=== PATIENT | female | born 2000 | race Caucasian/White ===

== ENCOUNTER → 2018-05-30 11:05 | Outpatient (CLI) | payer MEDICAID, SELFPAY ==
[2018-05-30 12:52] LABS: HCG,Quantitative 341 mIU/mL
== END ==
PROVIDERS: Visit Provider Nurse Practitioner Family
DX: Z32.00 Encounter for pregnancy test, result unknown (principal)
CPT/HCPCS: 36415; 84702

== ENCOUNTER → 2018-06-10 09:06 | Outpatient (CLI) | payer MEDICAID, SELFPAY | PROVIDERS: Visit Provider Obstetrics & Gynecology | DX: O20.0 Threatened abortion (principal) | CPT/HCPCS: 36415; 86850 ==

== ENCOUNTER 2018-07-12 10:15 | Outpatient (CLI) | payer MEDICAID, SELFPAY ==
[2018-07-12 12:15] VITALS: BP 143/66; PULSE 68; RESP 18; TEMP 36.4
== END 2018-07-12 12:25 | disposition home or self-care (01) ==
LOC: LAB 10:16 → INF 12:12
PROVIDERS: Visit Provider Obstetrics & Gynecology
DX: O03.9 Complete or unspecified spontaneous abortion without complication (principal)
CPT/HCPCS: 36415; 96372; J2790

== ENCOUNTER → 2018-12-22 12:14 | Outpatient (CLI) | payer MEDICAID, SELFPAY ==
[2018-12-22 13:34] LABS: HCG,Quantitative 0 mIU/mL
== END ==
PROVIDERS: Visit Provider Nurse Practitioner Family
DX: N91.2 Amenorrhea, unspecified (principal)
CPT/HCPCS: 36415; 84702

== ENCOUNTER 2019-08-17 21:22 | Emergency (ER) | payer OTHER, SELFPAY ==
[2019-08-17 21:31] VITALS: BP 148/75; PULSE 73; RESP 18; TEMP 36.9; O2SAT 100; BMI 40.7
--- NOTE | 2019-08-17 21:36 | XR_ITS ---
PROCEDURE: XR LUMBAR SPINE MIN 4V CLINICAL INDICATION: injury at work, left side lumbar pain COMPARISON: No exams were available for comparison FINDINGS: Normal alignment. No fracture or dislocation. Degenerative disc disease is present at L5-S1. There is a 3 mm calcific density overlying the left kidney centrally and a 2 mm calcific density overlying the mid pole of the right kidney consistent with bilateral nephrolithiasis. IMPRESSION: Degenerative disc disease L5-S1 Bilateral nephrolithiasis Dictated by: Bryson Hlil MD 08/18/2019 07:12 Electronically signed by Bryson Hill MD in [place] 08/18/2019 07:12
--- NOTE | 2019-08-17 21:44 | HMH.EDBACK ---
ED Disposition Clinical Impression: Strain of lumbar region Qualifiers: Encounter type: initial encounter Qualified Code(s): S39.012A - Strain of muscle, fascia and tendon of lower back, initial encounter Disposition: Home, Self-Care Condition on Discharge: Good Instructions: DI for Low Back Pain Additional Instructions: use meds and see pcp - workman comp forms completed Prescriptions: Cyclobenzaprine HCl [Flexeril 10mg tablet] 10 mg PO BID PRN 30 Days #20 tab PRN Reason: Muscle Spasm Transmission Status: Pending to [facility] Meloxicam [Mobic 15 mg tab] 15 mg PO DAILY #10 tab Transmission Status: Pending to [facility] Referrals: Theresa Joel APRN [Primary Care Provider] - - Critical Care Critical Care Time: No Attestation: On , the high probability of a clinically significant, sudden or life threatening deterioration of the following system(s) required my full and direct attention, intervention and personal management. The time I documented below is in addition to time spent performing reported procedures but includes the following listed in this critical care notation. Medical Decision Making - Medical Records Medical records reviewed: Yes: I reviewed the patient's medical records. - [place] Inquiry Pt receiving controlled substance: No Vital Signs: 08/17/19 21:31 Temperature 98.5 F Temperature Source Oral Pulse Rate [Right Brachial] 73 Respiratory Rate 18 Blood Pressure [Right Femoral Artery] 148/75 H Blood Pressure Mean [Right Femoral Artery] 99 Blood Pressure Source [Right Femoral Artery] Automatic Cuff Blood Pressure Position [Right Femoral Artery] Sitting 02 Sat by Pulse Oximetry 100 Oxygen Delivery Method Room Air - Lab Data Lab Results 08/17/19 21:58: Urine HCG, Qual Negative Orders (Tests/Meds): ORDERS Category Date Time Status XR lumbar spine min 4V Stat Exams 08/17/19 21:36 Taken - Radiology Data #1 Image(s): L-Spine Image Reviewed: Yes I reviewed the patient's radiology image Preliminary Findings: No Fracture Seen Back Pain HPI - General Chief Complaint: Back Pain/Injury Stated Complaint: WC [id number] injured back Time Seen by Provider: 08/17/19 21:45 Mode of Arrival: Ambulatory Source of Information: Patient, Medical Record Limitations: No Limitations Description of Symptoms (Recalled from ER Triage Doc. 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 was given a tylenol xstr at the facility, but pain is continuing. no additional complaints. 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 at [facility] and dev lt sided back pain - no sudden pain at time but has dev since - no radiation and no cauda equina sx- worse with movement - workman comp injury MD Complaint: back injury Onset (ago): hour(s) Duration: constant Similar Symptoms Previously: No Location: lumbar spine Severity: moderate Quality: dull Radiation: none Exacerbating factors: movement Context: while lifting Associated symptoms: denies other symptoms Treatments prior to arrival: acetaminophen - Related Data Home Medications Medication Instructions Recorded Confirmed Loratadine [Claritin 10mg 10 mg PO DAILY 12/22/17 05/18/19 Tablet] Previous Rx's Medication Instructions Recorded norgestimate 0.25 mg-ethinyl 1 tab PO DAILY 30 Days #30 tab 05/18/19 estradiol 35 mcg tablet Cyclobenzaprine HCl [Flexeril 10mg 10 mg PO BID PRN 30 Days #20 tab 08/17/19 tablet] Meloxicam [Mobic 15 mg tab] 15 mg PO DAILY #10 tab 08/17/19 Allergies Allergy/AdvReac Type Severity Reaction Status Date / Time No Known Allergies Allergy Verified 08/15/19 14:15 [facility] History - Hepatitis A Screen Drug use history?: No High risk sexual behaviors?: No History of sexually transmitted infection?: No Currently employed?: No Childcare worker?: No Do you have indoor plumbing?: Yes Do you have electricity?:
[2019-08-17 22:11] LABS: Urine Pregnancy, HCG Qual. Negative (Negative)
[2019-08-17 22:40] VITALS: BP 142/75; PULSE 65; RESP 17; TEMP 36.8; O2SAT 98
== END 2019-08-17 22:43 | disposition home or self-care (01) ==
PROVIDERS: Emergency Provider Emergency Medicine; PCP Nurse Practitioner Family
DX: S39.012A Strain of muscle, fascia and tendon of lower back, initial encounter (principal); X50.0XXA Overexertion from strenuous movement or load, initial encounter; Y92.69 Other specified industrial and construction area as the place of occurrence of the external cause; Y99.0 Civilian activity done for income or pay
CPT/HCPCS: 72110; 81025; 99282

== ENCOUNTER → 2019-11-04 09:40 | Outpatient (CLI) | payer OTHER, SELFPAY ==
[2019-11-04 10:39] LABS: HCG,Quantitative 6489 mIU/ml (0-5.42)
== END ==
PROVIDERS: Visit Provider Obstetrics & Gynecology
DX: Z32.00 Encounter for pregnancy test, result unknown (principal)
CPT/HCPCS: 36415; 84702

== ENCOUNTER → 2019-11-16 14:35 | Outpatient (CLI) | payer OTHER, SELFPAY ==
--- NOTE | 2019-11-16 14:40 | US_ITS ---
PROCEDURE: US OB TRANSVAGINAL CLINICAL INDICATION: US OB Dates COMPARISON: US OBTV US OB transvaginal from 05/31/2018 FINDINGS: An intrauterine gestational sac is present with a pole with a crown-rump length of 1.26cm correlating to gestational age of 7weeks 4days. heart tones are present with an FHR of 149bpm. Yolk sac is noted. Probable small corpus luteum cyst on the right at 13 mm IMPRESSION: Live IUP at 7 weeks 4 days Estimated due date by Ultrasound is 06/30/2020 Dictated by: Bryson Hill MD 11/16/2019 16:15 Bryson Hill MD in [place] 11/16/2019 16:15
== END ==
PROVIDERS: PCP Nurse Practitioner Family; Visit Provider Obstetrics & Gynecology
DX: O26.841 Uterine size-date discrepancy, first trimester (principal)
CPT/HCPCS: 76817

== ENCOUNTER → 2019-11-28 15:02 | Outpatient (CLI) | payer OTHER, SELFPAY ==
[2019-11-28 15:36] LABS: Basophils % 0.5 % (0.1-2.0); Eosinophils # 0.1 K/mm3 (0.0-0.4); Eosinophils % 1.1 % (0.1-12.0); Hematocrit 39.4 % (37.0-47.0); Hemoglobin 12.4 g/dL (12.2-16.2); Lymphocytes # 1.5 K/mm3 (0.7-4.5); Lymphocytes % 16.8 % (10-50); Mean Corpuscular HGB Conc 31.4 g/dL (31.8-35.4); Mean Corpuscular Hemoglobin 27.2 pg (27.0-31.2); Mean Corpuscular Volume 86.8 fl (81-99); Monocytes # 0.5 K/mm3 (0.1-1.0); Monocytes % 5.3 % (1.7-9.3); Neutrophils # 6.8 K/mm3 (1.8-7.8); Neutrophils % 76.4 % (37.0-80.0); Platelet Count 310 K/mm3 (142-424); Red Blood Count 4.54 M/mm3 (4.20-5.40); Red Cell Distribution Width 13.3 % (11.5-17.5); White Blood Count 8.9 K/mm3 (4.8-10.8)
[2019-11-30 11:12] LABS: Rapid Plasma Reagin Ab Titer Non Reactive (NonRea<1:1)
[2019-12-01 04:28] LABS: Neisseria gonorrhoeae, NAA Negative (Negative)
[2019-12-01 04:28] LABS: HIV Screen 4th Generation wRfx Non Reactive (Non Reactive); Hepatitis B Surface Antigen Negative (Negative); Hepatitis C Antibody <0.1 s/co ratio (0.0-0.9)
== END ==
PROVIDERS: Visit Provider Obstetrics & Gynecology
DX: Z34.90 Encounter for supervision of normal pregnancy, unspecified, unspecified trimester (principal)
CPT/HCPCS: 36415; 85025; 86592; 86703; 86762; 86850; 87340; 87380; 87491; 87591; G0432

== ENCOUNTER → 2020-02-12 12:31 | Outpatient (CLI) | payer OTHER, SELFPAY ==
--- NOTE | 2020-02-12 12:31 | US_ITS ---
PROCEDURE: US OB >= 14 WEEKS FETUS CLINICAL INDICATION: US OB Complete COMPARISON: US US OB TRANSVAGINAL from 11/16/2019 FINDINGS: There is a single live fetus in breech presentation. Cervix is closed measuring 4 cm. The placenta is anterior and grade 1. Complete survey performed and was unremarkable on the submitted images as in PACS. No discrete anomalies identified on survey imaging by technologist. Active fetus. Three-vessel cord with satisfactory umbilical cord insertion. 4- chamber heart noted. Survey of brain & ventricles Unremarkable. Face and neck survey unremarkable. Diaphragm and chest views unremarkable. Abdomen: Both kidneys noted and unremarkable. Stomach noted and satisfactory. Spine: Survey of the spine satisfactory with no anomalies identified nor imaged. Both arms and legs noted. Amniotic Fluid: Adequate. Maternal adnexa: No significant findings. Measurements: Average ultrasound age 20weeks 1day. Gestational Age 20weeks 1day Estimated due date by ultrasound age 0506/30/2020. Estimated weight 338g BPD = 20weeks 2days OFD = 20 weeks 2 days HC = 19weeks 4days AC = 20weeks 2days FL = 20weeks 3days Growth Percentile= 48 percent% Heart Rate = 147bpm Cerebellum = 20weeks 1day Humerus = 20weeks 6days HC/AC is 1.12 CI is 0.8 FL/BPD is 0.71 FL/AC is 0.22 IMPRESSION: Live IUP in breech presentation with and average ultrasound age of 20 weeks 1 day. No obvious anomalies. Please see above for detail Dictated by: Bryson Hill MD 02/12/2020 17:39 Bryson Hill MD in [place] 02/12/2020 17:39
== END ==
PROVIDERS: PCP Nurse Practitioner Family; Visit Provider Obstetrics & Gynecology
DX: Z36.0 Encounter for antenatal screening for chromosomal anomalies (principal)
CPT/HCPCS: 76805

== ENCOUNTER 2020-04-25 14:07 | Outpatient (CLI) | payer OTHER, SELFPAY ==
[2020-04-25 15:01] LABS: Glucose,Fasting 84 mg/dl (74-100)
[2020-04-25 16:25] VITALS: BP 144/88; PULSE 90; RESP 18; TEMP 36.6; O2SAT 100
[2020-04-25 17:02] LABS: Glucose 1 Hour 119 mg/dL (74-100)
== END 2020-04-25 16:25 | disposition home or self-care (01) ==
PROVIDERS: PCP Nurse Practitioner Family; Visit Provider Obstetrics & Gynecology
DX: Z34.90 Encounter for supervision of normal pregnancy, unspecified, unspecified trimester (principal)
CPT/HCPCS: 36415; 82951; 96372; J2790

== ENCOUNTER 2020-05-31 15:18 | Outpatient (CLI) | payer OTHER, SELFPAY ==
[2020-05-31 15:47] VITALS: BMI 43.4
[2020-05-31 16:01] VITALS: BMI 49.1
[2020-05-31 16:09] VITALS: BP 131/90; PULSE 92; RESP 18; TEMP 36.7; O2SAT 96
[2020-05-31 16:26] LABS: Microscopic, Urine URINE MICROSCOPIC (MICROSCOPIC)
[2020-05-31 16:30] LABS: Appearance,Urine CLEAR (Clear); Bilirubin,Urine Negative (Negative); Blood, Urine 1+ (Negative); Color,Urine YELLOW (Yellow); Glucose,Urine (UA) Negative (Negative); Ketones,Urine Negative (Negative); Leukocyte Esterase,Urine TRACE (Negative); Nitrate,Urine POSITIVE (Negative); PH,Urine 6.5 (5.0-8.5); Protein,Urine Negative (Negative); Specific Gravity, Urine 1.025 (1.005-1.030); Urobilinogen,Urine 0.2 EU/dl (0.2)
[2020-05-31 16:43] LABS: Bacteria,Urine 1+ /lpf; RBC,Urine Occasional #/hpf (0-3); Squamous Epithelial Cell,Urine 20-50 #/hpf (0-5)
[2020-05-31 16:45] LABS: Barbiturates Screen,Urine Negative ng/ml (<200)
[2020-05-31 16:46] LABS: Benzodiazepines Screen,Urine Negative ng/ml (<200)
[2020-05-31 16:47] LABS: Amphetamine/Metha Screen,Urine Negative ng/ml (<1000); Cannabinoid Screen,Urine Negative ng/ml (<50)
[2020-05-31 16:48] LABS: Cocaine Screen,Urine Negative ng/ml (<300); Methadone Screen,Urine Negative ng/ml (<300)
[2020-05-31 16:49] LABS: Opiate Screen,Urine Negative ng/ml (<300)
[2020-05-31 16:50] LABS: Phencyclidine Screen,Urine Negative ng/ml (<25)
== END 2020-05-31 17:05 | disposition home or self-care (01) ==
LOC: OBOUT 15:22 → OB 15:22
PROVIDERS: PCP Obstetrics & Gynecology; Visit Provider Nurse Practitioner Obstetrics & Gynecology
DX: O36.8130 Decreased fetal movements, third trimester, not applicable or unspecified (principal); Z3A.35 35 weeks gestation of pregnancy
CPT/HCPCS: 59025; 80305; 81001; G0463

== ENCOUNTER → 2020-06-11 17:45 | Outpatient (CLI) | payer OTHER, SELFPAY | PROVIDERS: Visit Provider Obstetrics & Gynecology | DX: Z34.90 Encounter for supervision of normal pregnancy, unspecified, unspecified trimester (principal) | CPT/HCPCS: 36415; 86403 ==

== ENCOUNTER 2020-07-01 15:48 | Inpatient (IN) | payer OTHER, SELFPAY ==
[2020-07-01 16:00] VITALS: BMI 45.8
[2020-07-01 16:55] LABS: Basophils # 0.1 K/mm3 (0-0.2); Basophils % 0.4 % (0.1-2.0); Eosinophils # 0.1 K/mm3 (0.0-0.4); Eosinophils % 0.6 % (0.1-12.0); Hematocrit 37.7 % (37.0-47.0); Hemoglobin 12.3 g/dL (12.2-16.2); Lymphocytes # 2.2 K/mm3 (0.7-4.5); Lymphocytes % 17.9 % (10-50); Mean Corpuscular HGB Conc 32.7 g/dL (31.8-35.4); Mean Corpuscular Hemoglobin 27.4 pg (27.0-31.2); Mean Corpuscular Volume 83.8 fl (81-99); Monocytes # 0.8 K/mm3 (0.1-1.0); Monocytes % 6.3 % (1.7-9.3); Neutrophils # 9.3 K/mm3 (1.8-7.8); Neutrophils % 74.8 % (37.0-80.0); Platelet Count 319 K/mm3 (142-424); Red Blood Count 4.49 M/mm3 (4.20-5.40); Red Cell Distribution Width 14.3 % (11.5-17.5); White Blood Count 12.4 K/mm3 (4.8-10.8)
[2020-07-01 17:01] VITALS: BP 140/87; PULSE 87; RESP 18; TEMP 37; O2SAT 98; BMI 51.9
[2020-07-01 17:08] LABS: Adenovirus,PCR Not Detected (NotDetected); Bordetella Pertussis Not Detected (NotDetected); Chlamydophila Pneumoniae, PCR Not Detected (NotDetected); Coronavirus 19, PCR Not Detected (NotDetected); Coronavirus 229E Not Detected (NotDetected); Coronavirus NL63 Not Detected (NotDetected); Coronavirus OC43 Not Detected (NotDetected); Coronovirus HKU1,PCR Not Detected (NotDetected); Human Metapneumovirus Not Detected (NotDetected); Influenza A, PCR Not Detected (NotDetected); Influenza AH1, 2009 Not Detected (NotDetected); Influenza AH1, PCR Not Detected (NotDetected); Influenza AH3,PCR Not Detected (NotDetected); Influenza B, PCR Not Detected (NotDetected); Mycoplasma Pneumoniae, PCR Not Detected (NotDetected); Parainfluenza 1, PCR Not Detected (NotDetected); Parainfluenza 2, PCR Not Detected (NotDetected); Parainfluenza 3, PCR Not Detected (NotDetected); Parainfluenza 4, PCR Not Detected (NotDetected); Respiratory Syncytial Virus Not Detected (NotDetected); Rhinovirus/Enterovirus Not Detected (NotDetected)
[2020-07-01 18:14] LABS: Microscopic, Urine URINE MICROSCOPIC (MICROSCOPIC)
[2020-07-01 18:16] LABS: Appearance,Urine CLEAR (Clear); Bilirubin,Urine Negative (Negative); Blood, Urine Negative (Negative); Color,Urine YELLOW (Yellow); Glucose,Urine (UA) Negative (Negative); Ketones,Urine Negative (Negative); Leukocyte Esterase,Urine Negative (Negative); Nitrate,Urine Negative (Negative); PH,Urine 6.5 (5.0-8.5); Protein,Urine Negative (Negative); Specific Gravity, Urine 1.015 (1.005-1.030); Urobilinogen,Urine 0.2 EU/dl (0.2)
[2020-07-01 18:27] LABS: Bacteria,Urine 2+ /lpf; RBC,Urine Occasional #/hpf (0-3)
[2020-07-01 20:05] VITALS: BP 130/82; PULSE 81; RESP 18; TEMP 36.6; O2SAT 97
[2020-07-02] VITALS (25 sets, daily range): BP systolic 102–160; BP diastolic 48–89; PULSE 66–103; RESP 12–20; TEMP 36.3–37.3; O2SAT 95–100
--- NOTE | 2020-07-02 07:30 | HMH.HP ---
*Admission Date: 07/01/20 *Chief complaint: post-date induction *History of present illness: 19 yo G1 @ 40+ weeks for post-date induction of labor unfavorable cervix and patient brought in for prostaglandin ripening on 07/01/20 cervidil placed in the vagina but had to be removed 1 hour later due to intolerance with the medication [facility] History I have reviewed the patient's past medical history: Yes Medical History: Denies:: Diabetes Mellitus Type 1, Diabetes Mellitus Type 2, Hypertension *Have you ever received a pneumonia vaccine?: No *Have you received a flu vaccine this season?: No Anesthesia experience/problems:: None Laterality Cases: Bilateral: Tonsillectomy Other Surgeries: Yes: Cholecystectomy. 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 Para: 0 Review of Systems - Review of Systems Review of systems:: pertinent systems reviewed and negative unless documented below - *Genitourinary Reports other (irregular contractions), Denies abnormal vaginal bleeding Meds Home Medications Medication Instructions Recorded Confirmed Type Loratadine [Claritin 10mg 10 mg PO DAILY 12/22/17 07/01/20 History Tablet] omeprazole 20 mg capsule,delayed 20 mg PO DAILY cap 11/28/19 07/01/20 History release ondansetron 4 mg disintegrating 4 mg PO Q4H PRN #30 tab 11/28/19 07/01/20 Rx tablet Vit Calc,Iron,Folic [Kpn] 1 tab PO DAILY 07/01/20 07/01/20 History Allergies Allergy/AdvReac Type Severity Reaction Status Date / Time No Known Allergies Allergy Verified 06/28/20 13:31 Exam Vital signs and Labs for Last 24 Hours: Temp Pulse Resp BP Pulse Ox 97.8 F 103 H 12 102/48 L 99 07/02/20 13:11 07/02/20 13:11 07/02/20 13:11 07/02/20 13:11 07/02/20 04:11 Laboratory Results - last 24 hr 07/01/20 16:15: Urine Color Yellow, Urine Appearance Clear, Urine pH 6.5, Ur Specific [place] 1.015, Urine Protein Negative, Urine Glucose (UA) Negative, Urine Ketones Negative, Urine Blood Negative, Urine Nitrate Negative, Urine Bilirubin Negative, Urine Urobilinogen 0.2, Ur Leukocyte Esterase Negative, Urine RBC Occasional, Urine WBC 10-20, Ur Squamous Epith Cells 5-10, Urine Bacteria 2+ 07/01/20 16:30: Chlamy pneumoniae PCR Not detected, Adenovirus (PCR) Not detected, B. pertussis DNA (PCR) Not detected, Coronavirus OC43 (PCR) Not detected, Coronavirus HKU1 (PCR) Not detected, Coronavirus 229E (PCR) Not detected, SARS-CoV-2 (PCR) Not detected, Coronavirus NL63 (PCR) Not detected, Human Metapneumovir PCR Not detected, Influenza A (H1) PCR Not detected, Influ A (H1N1/09) PCR Not detected, Influenza A (H3) PCR Not detected, Influenza Type A (PCR) Not detected, Influenza Type B (PCR) Not detected, M. pneumoniae (PCR) Not detected, Parainfluenza 1 (PCR) Not detected, Parainfluenza 2 (PCR) Not detected, Parainfluenza 3 (PCR) Not detected, Parainfluenza 4 (PCR) Not detected, RSV (PCR) Not detected, Entero/Rhino (PCR) Not detected 07/01/20 16:34: WBC 12.4 H, RBC 4.49, Hgb 12.3, Hct 37.7, MCV 83.8, MCH 27.4, MCHC 32.7, RDW 14.3, Plt Count 319, MPV 8.0, Neut % (Auto) 74.8, Lymph % (Auto) 17.9, Andrews % (Auto) 6.3, Eos % (Auto) 0.6, Baso % (Auto) 0.4, Neut # (Auto) 9.3 H, Lymph # (Auto) 2.2, Andrews # (Auto) 0.8, Eos # (Auto) 0.1, Baso # (Auto) 0.1 07/01/20 16:34: Blood Type O Negative, Antibody Screen Positive, Crossmatch (AHG) See Detail I & O for Last 24 hours: Intake & Output 06/30/20 07/01/20 07/02/2007/03/21 11:59 11:59 11:59 11:59 Intake Total 1500 / 1500 Balance 1500 / 1500 Weight 284 lb Microbiology Reports for the Last 24 Hours: Microbiology 07/01/20 16:15 Urine,Clean Catch
--- NOTE | 2020-07-02 09:30 | HMH.LABNOT ---
Labor Note - Subjective: Date: 07/02/20 Time: 13:43 regular contraction - Objective: NST:: Reactive Cervical Dilation:: 2 Effacement:: 80% Membranes: artificially ruptured Comment:: AROM with clear fluid IUPC and FSE placed without difficulty - Fetus: monitoring type:: Internal Comment:: recurrent late decelerations x 3 following amniotomy; resolved with repositioning, maternal O2 administration and discontinuation of pitocin - Assessment: Patient Problems: All Active Problems Postmaturity , 40-42 weeks gestation (Acute) 40 weeks gestation of (Acute) Post term over 40 weeks (Acute) Rh negative status during (Acute) Obesity complicating (Acute) (Acute) Strain of lumbar region (Acute) Dysplasia of cervix, low grade (LANE 1) (Acute) ASCUS with positive high risk HPV (Acute) Viral pharyngitis (Acute) 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
--- NOTE | 2020-07-02 09:49 | HMH.ANESCL ---
[facility] Anesthesia Checklist - Patient Identification Patient Identification: Arm Band - Structural Data Admitted From: Inpatient Planned Operative Procedure/s: DEVORA for labor Consent for Planned Operative Procedure(s) Verified: Yes Verified Documents: Surgical Consent - NPO Status Verified Time NPO: 00:00 - Airway Assessment C-Spine Mobility Assessed: Yes TMJ Mobility Assessed: Yes Dentition: Good Dentition - Neurological Assessment Level of Consciousness: Awake, Alert - Anesthesia Plan Anesthesia Risk discussed: Yes Anesthesia Plan: Verified ASA Class: II Anesthesia Type: Epidural [facility] History Medical History: Denies:: Diabetes Mellitus Type 1, Diabetes Mellitus Type 2, Hypertension *Have you ever received a pneumonia vaccine?: No *Have you received a flu vaccine this season?: No Anesthesia experience/problems:: None Laterality Cases: Bilateral: Tonsillectomy Other Surgeries: Yes: Cholecystectomy. 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
--- NOTE | 2020-07-02 13:10 | P.PN_ITS ---
[facility] Anesthesia Record Part I Intake, IV Amount: 1,500 Estimated blood loss (mL): 700 Urine output (mL): 300 Blood Pressure: 102/48 SaO2: 97 Pulse Rate: 103 Respiratory Rate: 12 Temperature: 97.8 F Patient is:: Awake, Stable Stable to PACU at:: 13:05
--- NOTE | 2020-07-02 13:53 | HMH.LABNOT ---
Labor Note - Subjective: Date: 07/02/20 Time: 11:30 Comment:: comfortable with epidural recurrent late decelerations; cervix unchanged 2/80% pitocin discontinued will proceed to OR for primary CS - Assessment: Patient Problems: All Active Problems Postmaturity , 40-42 weeks gestation (Acute) 40 weeks gestation of (Acute) Post term over 40 weeks (Acute) Rh negative status during (Acute) Obesity complicating (Acute) (Acute) Strain of lumbar region (Acute) Dysplasia of cervix, low grade (LANE 1) (Acute) ASCUS with positive high risk HPV (Acute) Viral pharyngitis (Acute) High risk HPV infection (Acute) LGSIL on Pap smear of cervix (Acute)
--- NOTE | 2020-07-02 14:17 | HMH.OPNOTE ---
Date of procedure: 07/02/20 Pre-op Diagnosis:: 1. 40 wks gestational age 2. Non-reassuring heart tracing, remote from delivery Post-op Diagnosis:: same Procedure performed:: Primary Low Transverse C Section Surgeon:: Zuly Gaspar MD Channel Cementer Outsole Machine(s):: Jeovanny Coto SUPERVISOR PAINT ROLLER COVERS:: Hari Alegria Anesthesia: epidural Estimated blood loss (mL): 900 Operative findings:: vigorous liveborn male grossly normal uterus, fallopian tubes and ovaries Operative note:: The patient was taken to the OR and was prepped and draped in normal sterile fashion. Adequate epidural anesthesia was confirmed. A pfannenstiel skin incision was made with the scalpel and carried down to the fascia. The fascia was incised in the midline and sharply dissected off the rectus muscles. The muscles were in the midline and the peritoneum was entered sharply and extended bluntly. The Arpan-O self retaining retractor was placed in the abdomen and a bladder flap was created. The uterus was incised in the lower uterine segment in a transverse fashion and extended bluntly. Amniotomy was performed and clear fluid noted. The was delivered in controlled fashion, without complication or shoulder dystocia. The infant was vigorous at and handed to awaiting pediatricians for evaluation after cord clamped and cut. Cord blood was collected and a cord segment was preserved. The placenta was manually extracted and noted to be intact. The uterus was repaired with 0-vicryl in a running/locked fashion. The peritoneum was closed with 2-0 vicryl in a running fashion. The fascia was closed with #1 vicryl in a running fashion. The subcutaneous fat was closed with 2-0 vicryl in an interrupted fashion. The skin was closed with stratafix suture. The patient tolerated the procedure well. Sponge, lap, needle and instrument counts were correct x 2. She was taken to PACU awake and in stable condition. Condition: stable Disposition: PACU Specimens:: placenta Complications:: none
[2020-07-03 03:58] VITALS: BP 123/69; PULSE 89; RESP 20; TEMP 36.7; O2SAT 100
[2020-07-03 07:16] LABS: Hematocrit 27.4 % (37.0-47.0); Hemoglobin 9.2 g/dL (12.2-16.2)
--- NOTE | 2020-07-03 07:57 | HMH.ANESII ---
[facility] Anesthesia Record Part II Discharge Time: 13:53 Destination: Obstetric PACU nurse assessment reviewed?: Yes Patient Condition:: Good Anesthesia Complications:: None Swallowing reflex intact?: Yes Cyanosis?: No Blood Pressure: 160/83 Pulse Rate: 100 Temperature: 97.5 F Mental Status: Alert & Oriented Pain level:: 0 Nausea and/or vomitting:: None Intake, IV Amount: 0
[2020-07-03 07:59] VITALS: BP 160/83; PULSE 100; TEMP 36.4
--- NOTE | 2020-07-03 11:35 | HMH.ACPN2 ---
Internal Medicine - PN: Subj *Date: 07/03/20 *Time: 11:36 Interval history: POD #1 primary CS No unusual complaints Tolerating regular diet Ambulating and voiding without difficulty Asymptomatic with acute blood loss anemia Exam Vital signs and Labs for Last 24 Hours: Temp Pulse Resp BP Pulse Ox 97.5 F L 100 H 20 160/83 H 100 07/03/20 07:59 07/03/20 07:59 07/03/20 03:58 07/03/20 07:59 07/03/20 03:58 Laboratory Results - last 24 hr 07/01/20 16:34: Blood Type O Negative, Antibody Screen Positive, Crossmatch (AHG) See Detail 07/03/20 06:45: Hgb 9.2 L, Hct 27.4 L 07/03/20 06:45: Screen Cancelled, Baby's Rh Status Cancelled I & O for Last 24 hours: Intake & Output 06/30/20 07/01/20 07/02/20 07/03/20 11:59 11:59 11:59 11:59 Intake Total 1500 / 1500 Output Total 600 / 600 1350 / 1350 Balance -600 / -600 150 / 150 Weight 284 lb Microbiology Reports for the Last 24 Hours: Microbiology 07/01/20 16:15 Urine,Clean Catch Urine Culture - Final Multiple organisms, suggests contamination. Narrative: CONSTITUTIONAL: no acute distress HEENT: mucous membranes moist PULMONARY: breathing unlabored without audible wheezes CV: no tachycardia or visible JVD; normal LE peripheral pulses ABD: soft, ND; appropriately tender but no rebound/guarding : fundus firm at/below umbilicus SKIN: incision well approximated with no drainage, erythema or induration EXT: 1+ edema LEs NEURO: alert/oriented, no altered mental status PSYCH: appropriate mood and demeanor Assessment and Plan (1) 40 weeks gestation of Status: Acute Category: Medical Code(s): Z3A.40 - 40 weeks gestation of (2) Post term over 40 weeks Status: Acute Category: Medical Code(s): O48.0 - Post-term (3) Obesity complicating Status: Acute Category: Medical Code(s): O99.210 - Obesity complicating , unspecified trimester (4) Rh negative status during Status: Acute Category: Medical Code(s): O26.899 - Other specified related conditions, unspecified trimester; Z67.91 - Unspecified blood type, Rh negative - Assessment and plan all Dx Assessment and Plan for all problems:: Routine postop care FeSO4 BID for anemia
--- NOTE | 2020-07-04 10:23 | HMH.DCSUM ---
General - General Admission date:: 07/01/20 Discharge date: 07/04/20 HPI HPI: 19 yo G1 @ 40+ weeks for post-date induction of labor unfavorable cervix and patient brought in for prostaglandin ripening on 07/01/20 cervidil placed in the vagina but had to be removed 1 hour later due to intolerance with the medication Hospital Course Hospital Course: Admitted for IOL at 40+ weeks Delivered by c section due to nonreassuring heart tracing, remote from delivery Postop/ course uneventful Tolerating regular diet, ambulating and voiding without difficulty pain control sufficient Objective Vital signs: Temp Pulse Resp BP Pulse Ox 97.5 F L 100 H 20 160/83 H 100 07/03/20 07:59 07/03/20 07:59 07/03/20 03:58 07/03/20 07:59 07/03/20 03:58 Narrative: CONSTITUTIONAL: no acute distress HEENT: mucous membranes moist PULMONARY: breathing unlabored without audible wheezes CV: no tachycardia or visible JVD; normal LE peripheral pulses ABD: soft, ND; appropriately tender but no rebound/guarding : fundus firm at/below umbilicus SKIN: incision well approximated with no drainage, erythema or induration EXT: 1+ edema LEs NEURO: alert/oriented, no altered mental status PSYCH: appropriate mood and demeanor without anxiety/depression DS: Diagnosis - Discharge Diagnosis (1) 40 weeks gestation of Status: Acute (2) Post term over 40 weeks Status: Acute (3) Obesity complicating Status: Acute (4) Rh negative status during Status: Acute Discharge Plan - Patient Discharge Instructions ACTIVITY: Continue current activity DIET: regular diet Additional Instructions: NO HEAVY LIFTING NOTHING IN THE VAGINA FOR 6 WEEKS NO DRIVING DRINK PLENTY OF FLUIDS Patient Instructions: Depression, Hemorrhage, DI for , DI for Pre-eclampsia, [facility] Post Discharge Instructions, Preventing the Spread of Coronavirus Discharge Instructions - Follow up Plan Disposition: Home, Self-Care Condition at discharge:: Stable Home Medications: Home Medications Medication Instructions Recorded Confirmed Type Loratadine [Claritin 10mg 10 mg PO DAILY 12/22/17 07/01/20 History Tablet] omeprazole 20 mg capsule,delayed 20 mg PO DAILY cap 11/28/19 07/01/20 History release ondansetron 4 mg disintegrating 4 mg PO Q4H PRN #30 tab 11/28/19 07/01/20 Rx tablet Vit Calc,Iron,Folic [Kpn] 1 tab PO DAILY 07/01/20 07/01/20 History Ibuprofen [Motrin 400mg 800 mg PO Q6HP PRN #40 tab 07/04/20 Rx tablet] Oxycodone HCl [OxyIR 5mg tablet] 10 mg PO Q4HP PRN #24 tab 07/04/20 Rx Prescriptions/Medication Reconciliation: New Ibuprofen [Motrin 400mg tablet] 800 mg PO Q6HP PRN #40 tab PRN Reason: Mild To Moderate Pain Acetaminophen [Acetaminophen 325mg tab] 650 mg PO Q4HP PRN tablet PRN Reason: Mild Pain Oxycodone HCl [OxyIR 5mg tablet] 10 mg PO Q4HP PRN #24 tab PRN Reason: Moderate To Severe Pain Continued ondansetron 4 mg disintegrating tablet 4 mg PO Q4H PRN #30 tab PRN Reason: nausea and vomiting omeprazole 20 mg capsule,delayed release 20 mg PO DAILY cap Loratadine [Claritin 10mg Tablet] 10 mg PO DAILY Vit Calc,Iron,Folic [Kpn] 1 tab PO DAILY - Problem Reconciliation Problems Reviewed?: Yes
== END 2020-07-04 13:45 | disposition home or self-care (01) | DRG 788 ==
PROVIDERS: Admitting Provider Obstetrics & Gynecology; PCP Nurse Practitioner Family; Visit Provider Obstetrics & Gynecology
PROC: 10D00Z1 Extraction of Products of Conception, Low, Open Approach (ICD-10-PCS; CPT 59514; principal; 2020-07-02 12:00)
DX: O36.8330 Maternal care for abnormalities of the fetal heart rate or rhythm, third trimester, not applicable or unspecified (principal); Z3A.40 40 weeks gestation of pregnancy; Z37.0 Single live birth
CPT/HCPCS: 59514; 36415; 59025; 81001; 85014; 85018; 85025; 86850; 86870; 87086; 87581; 87633; 87798; 94761; C1758; G0283; J2405

== ENCOUNTER 2020-11-19 17:52 | Emergency (ER) | payer OTHER, SELFPAY ==
[2020-11-19 17:53] VITALS: BP 133/99; PULSE 90; RESP 14; TEMP 36.8; O2SAT 100; BMI 41.9
--- NOTE | 2020-11-19 18:22 | XR_ITS ---
PROCEDURE INFORMATION: Exam: XR Right Ankle Exam date and time: 11/19/2020 6:22 PM Age: 20 years old Clinical indication: Injury or trauma; Fall; Sprain or strain; Right; Injury date: 11/17/20; Injury details: Stepped into a hole and twisted ankle; Additional info: Pain TECHNIQUE: Imaging protocol: XR Right ankle. Views: 3 or more views. COMPARISON: No relevant prior studies available. FINDINGS: Bones/joints: Of subtle cortical irregularity is seen in the distal right fibula. This could represent a nondisplaced fracture. Ankle mortise is well aligned. Soft tissues: Moderate soft tissue swelling about the ankle. IMPRESSION: A nondisplaced fracture at the tip of the fibula is suspected.
[2020-11-19 18:31] VITALS: BP 129/80; PULSE 82; RESP 18; TEMP 36.9; O2SAT 98; BMI 41.9
--- NOTE | 2020-11-19 19:03 | HMH.EDUTC ---
[facility] – [place] Disposition Clinical Impression: Closed fracture of right distal fibula Qualifiers: Encounter type: initial encounter Fracture morphology: unspecified fracture morphology Qualified Code(s): S82.831A - Other fracture of upper and lower end of right fibula, initial encounter for closed fracture Disposition: Home, Self-Care Condition on Discharge: Good Instructions: Ankle Fracture, DI for Ankle Fracture, How to Use a Walking Boot Additional Instructions: Rest the extremity, apply ice for 15 minutes as tolerated three or four times per day, Wear the humble wrap for compression, Elevate the extremity as tolerated while you are resting. Take ibuprofen for pain. I sent in a prescription to your pharmacy. Follow up with Dr. Rey (orthopedics). I put in a referral but you need to call his office and schedule an appointment. Call his office in the morning to get a follow up appointment. Follow up with your regular doctor. GO TO THE ER FOR ANY WORSENING SYMPTOMS Prescriptions: Ibuprofen [Ibuprofen 600mg Tablet] 600 mg PO Q6HP PRN #30 tab PRN Reason: Mild Pain Transmission Status: Received by [employer] Referrals: Theresa Joel APRN [Primary Care Provider] - Ravi Rey MD [Staff Physician] - Forms: Work/School Release Time of Disposition: 19:25 Medical Decision Making - Medical Records Medical records reviewed: No: I reviewed the patient's medical records. - Pepe Inquiry Pt receiving controlled substance: No Vital Signs: 11/19/20 17:53 11/19/20 18:31 Temperature 98.3 F 98.5 F Temperature Source Oral Oral Pulse Rate [Left Radial] 90 82 Respiratory Rate 14 18 Blood Pressure [Left Arm] 133/99 H 129/80 Blood Pressure Mean [Left Arm] 110 96 Blood Pressure Source [Left Arm] Automatic Cuff Blood Pressure Position [Left Arm] Sitting 02 Sat by Pulse Oximetry 100 98 Oxygen Delivery Method Room Air - Radiology Data #1 Image(s): Ankle Image Reviewed: Yes I reviewed the patient's radiology image, Yes I have reviewed radiologist's interpretation Preliminary Findings: Abnormal PROCEDURE INFORMATION: Exam: XR Right Ankle Exam date and time: 11/19/2020 6:22 PM Age: 20 years old Clinical indication: Injury or trauma; Fall; Sprain or strain; Right; Injury date: 11/17/20; Injury details: Stepped into a hole and twisted ankle; Additional info: Pain TECHNIQUE: Imaging protocol: XR Right ankle. Views: 3 or more views. COMPARISON: No relevant prior studies available. FINDINGS: Bones/joints: Of subtle cortical irregularity is seen in the distal right fibula. This could represent a nondisplaced fracture. Ankle mortise is well aligned. Soft tissues: Moderate soft tissue swelling about the ankle. IMPRESSION: A nondisplaced fracture at the tip of the fibula is suspected. [facility] [place] HPI - General Stated complaint: a/o 11/17 fell in hole right ankle injury Time Seen by Provider: 11/19/20 19:03 Mode of Arrival: Ambulatory Source of Information: Patient Limitations: No Limitations Description of Symptoms (Recalled from Triage Doc. by RN): pt tripped in a hole and rolled her R ankle two days ago. pt c/o R ankle pain and swelling. HEENT Symptoms (Recalled from RN notes): No Resp Symptoms (Recalled from RN notes): No Skin Symptoms (Recalled from RN notes): No MS Symptoms (Recalled from RN notes): Yes (R ankle pain and swelling) Functional Status (Recalled from RN notes): na - History of Present Illness Provider Complaint: She states that 2 days ago she stepped in a hole in her yard and twisted her right ankle. Since then he has right ankle pain and swelling. Her pain is worse when she tries to bear weight on it. - Related Data Home Medications Medication Instructions Recorded Confirmed Loratadine [Claritin 10mg 10 mg PO DAILY 12/22/17 07/01/20 Tablet] omeprazole 20 mg capsule,delayed 20
[2020-11-19 19:40] VITALS: BP 129/80; PULSE 82; RESP 18; TEMP 36.9
== END 2020-11-19 19:40 | disposition home or self-care (01) ==
LOC: ER 18:12 → UTC 18:12
PROVIDERS: Emergency Provider Nurse Practitioner Family; PCP Nurse Practitioner Family
DX: S82.831A Other fracture of upper and lower end of right fibula, initial encounter for closed fracture (principal); W17.2XXA Fall into hole, initial encounter; Y92.017 Garden or yard in single-family (private) house as the place of occurrence of the external cause
CPT/HCPCS: 29515; 73610; 99202; G0463

== ENCOUNTER 2021-02-02 02:18 | Emergency (ER) | payer OTHER, SELFPAY ==
[2021-02-02 02:20] VITALS: BP 147/84; PULSE 107; RESP 16; TEMP 36.8; O2SAT 98; BMI 43.9
--- NOTE | 2021-02-02 02:40 | CT_ITS ---
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 Total images: 577 Radiation optimization: All CT scans at this facility use at least one of these dose optimization techniques: automated exposure control; mA and/or kV adjustment per patient size (includes targeted exams where dose is matched to clinical indication); or iterative reconstruction. COMPARISON: CR XR LUMBAR SPINE MIN 4V 08/17/2019 10:09 PM FINDINGS: Vertebrae: No acute fracture. Normal alignment. Discs/Spinal canal/Neural foramina: Disc bulging noted at L4/L5 with mild to moderate central canal stenosis and potentially contacting the bilateral L5 nerve root at the lateral recess. Mild disc bulge causing [id number] bilateral neural foraminal narrowing at L5/S1. Sacrum/coccyx: Sacroiliac joint degeneration is evident. Kidneys and ureters: Nonobstructive left sided kidney stone measures 3 mm. Soft tissues: Unremarkable. IMPRESSION: Disc bulging noted at L4/L5 with mild to moderate central canal stenosis and potentially contacting the bilateral L5 nerve root at the lateral recess. Mild disc bulge causing [id number] bilateral neural foraminal narrowing at L5/S1. No acute fracture identified.
--- NOTE | 2021-02-02 02:40 | CT_ITS ---
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 Total images: 618 Radiation optimization: All CT scans at this facility use at least one of these dose optimization techniques: automated exposure control; mA and/or kV adjustment per patient size (includes targeted exams where dose is matched to clinical indication); or iterative reconstruction. COMPARISON: CR XR LUMBAR SPINE MIN 4V 08/17/2019 10:09 PM FINDINGS: Limitations: Examination is limited by respiratory motion. Vertebrae: No acute fracture. Normal alignment. Discs/Spinal canal/Neural foramina: Prominent posterior disc osteophyte complex at T11/T12 with mild to moderate central canal stenosis. Soft tissues: Unremarkable. Lungs: Benign granulomatous disease of the lung is noted. Mediastinum: Gas noted within the thoracic esophageal lumen and could be evidence of gastroesophageal reflux. Gallbladder and bile ducts: Prior cholecystectomy noted. IMPRESSION: Prominent posterior disc osteophyte complex at T11/T12 with mild to moderate central canal stenosis. No fracture.
[2021-02-02 02:58] LABS: Urine Pregnancy, HCG Qual. Negative (Negative)
--- NOTE | 2021-02-02 03:14 | HMH.EDBACK ---
ED Disposition Clinical Impression: Acute lumbar myofascial strain Qualifiers: Encounter type: initial encounter Qualified Code(s): S39.012A - Strain of muscle, fascia and tendon of lower back, initial encounter Thoracic back pain Qualifiers: Chronicity: acute Back pain laterality: unspecified Qualified Code(s): M54.6 - Pain in thoracic spine Disposition: Home, Self-Care Condition on Discharge: Good Instructions: DI for Low Back Pain Additional Instructions: see pcp wednesday Prescriptions: predniSONE [Prednisone 20mg Tab] 20 mg PO BID #10 tab Prescription Printed Referrals: Theresa Joel APRN [Primary Care Provider] - - Critical Care Critical Care Time: No Attestation: On 02/02/21, the high probability of a clinically significant, sudden or life threatening deterioration of the following system(s) required my full and direct attention, intervention and personal management. The time I documented below is in addition to time spent performing reported procedures but includes the following listed in this critical care notation. Medical Decision Making - Medical Records Medical records reviewed: Yes: I reviewed the patient's medical records. - Pepe Inquiry Pt receiving controlled substance: No Vital Signs: 02/02/21 02:20 Temperature 98.2 F Temperature Source Oral Pulse Rate [Left] 107 H Respiratory Rate 16 Blood Pressure [Right Arm] 147/84 H Blood Pressure Mean [Right Arm] 105 02 Sat by Pulse Oximetry 98 Oxygen Delivery Method Room Air - Lab Data Lab results reviewed: Yes: I reviewed the patient's lab results. Lab Results 02/02/21 02:51: Urine HCG, Qual Negative Orders (Tests/Meds): ED MEDICATIONS Discontinued Medications Generic Name Dose Route Start Last Admin Trade Name Josselin PRN Reason Stop Dose Admin Acetaminophen 1,000 mg 02/02/21 03:11 02/02/21 03:17 Acetaminophen 500mg Tab PO 02/02/21 03:12 1,000 mg ONCE ONE Administration Indomethacin 25 mg 02/02/21 03:59 02/02/21 04:02 Indomethacin 25 Mg Capsule PO 02/02/21 04:00 25 mg ONCE ONE Administration Ketorolac Tromethamine 30 mg 02/02/21 02:45 02/02/21 03:13 Ketorolac 30mg/Ml Vial IV 02/02/21 02:46 Not Given ONCE ONE Methocarbamol 500 mg 02/02/21 09:00 Methocarbamol 500mg Tablet PO 03/04/21 08:59 BID GILA Methocarbamol 500 mg 02/02/21 03:15 02/02/21 03:17 Methocarbamol 500mg Tablet PO 02/02/21 03:16 500 mg ONCE ONE Administration Methylprednisolone Sodium Succinate 125 mg 02/02/21 02:45 02/02/21 03:14 Methylprednisolone Sod Succ 125mg Vial IV 02/02/21 02:46 Not Given ONCE ONE Tramadol HCl 1 slime 02/02/21 04:00 02/02/21 04:02 Tramadol 50mg Tab Take Home Pack (10) PO 02/02/21 04:01 1 slime ONCE ONE Administration - CT Data CT Scan: T-Spine, L-Spine Time Received: 04:[address] Reviewed: Yes: I have viewed the radiologist's interpretation Preliminary Findings: Abnormal (see report ), No Fracture Seen Medical Decision Narrative: acute lifting injury to back with abn ct scan - will complete workman comp form-will need therapy and follow up and prob mri Back Pain HPI - General Chief Complaint: Back Pain/Injury Stated Complaint: WC 02/02/212029 lower back injury Time Seen by Provider: 02/02/21 03:14 Mode of Arrival: Ambulatory Source of Information: Patient, Medical Record Limitations: No Limitations Description of Symptoms (Recalled from ER Triage Doc. 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 pt states that she had a previous back issue 6 years ago. pt complains of pain in the middle to lower back - History of Present Illness HPI Narrative: lifting /pulling injury at work with localized pain thoracic and lumbar - spine - no cauda equina sx Complaint: back pain, back injury Onset (ago): hour(s) Duration: constant Similar Symptoms Previously: No Loc
[2021-02-02 04:22] VITALS: BP 143/76; PULSE 103; RESP 18; TEMP 36.8; O2SAT 98
== END 2021-02-02 04:24 | disposition home or self-care (01) ==
PROVIDERS: Emergency Provider Emergency Medicine; PCP Nurse Practitioner Family
DX: S39.012A Strain of muscle, fascia and tendon of lower back, initial encounter (principal); M54.6 Pain in thoracic spine; X50.0XXA Overexertion from strenuous movement or load, initial encounter; Y92.69 Other specified industrial and construction area as the place of occurrence of the external cause; Y99.0 Civilian activity done for income or pay; K21.9 Gastro-esophageal reflux disease without esophagitis
CPT/HCPCS: 72128; 72131; 81025; 99282

== ENCOUNTER 2021-02-24 12:47 | Outpatient (RCR) | payer OTHER, SELFPAY ==
--- NOTE | 2021-02-24 13:51 | HMH.PTOPEV ---
PT Outpatient Evaluation Rehab PT Outpatient Evaluation Start: 02/24/21 12:53 Freq: Status: Active Protocol: Document 02/24/21 12:53 ZONIA (Rec: 02/24/21 13:50 PDESEROUX [id number]) Electronically Signed By Axel Dias, PT 02/24/21 12:53 Outpatient Therapy Subjective History Subjective History Pt. is a 20 year old female who presents to her initial evaluation today(02/24) at Outpatient Physical Therapy w/ c/o subacute and constant lumbar P! and occupational restrictions of traumatic onset at the end of December 2020. Pt. 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 Pt. reports noticing symptom onset after leaving that patient's room. 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 Pt. reports being released from all her restrictions by her MD on 02/05/21. Pt. reports not having a date where she RTMD. Recent diagnostic imaging positive for osteophytes and bulging discs per pt. report. Pt. denies having an injection for current symptom complaint . Pt. reports activities at work worsen her symptoms including patient transfers. Pt. reports having some symptom relief w/ lying prone or on her side. Pt. denies having radicular symptoms, however, reports chronic tingling in her LLE toes, but states the tingling was there prior to DOI. Current medications include Diclofenac , Control, and medications for acid reflux and allergies. PMH includes GERD, section x 1, Tonsillectomy, and
== END 2021-04-07 13:44 | disposition home or self-care (01) ==
LOC: PT.CARL 12:47
PROVIDERS: PCP Nurse Practitioner Family; Visit Provider Nurse Practitioner Family
DX: S39.012D Strain of muscle, fascia and tendon of lower back, subsequent encounter (principal)
CPT/HCPCS: 97163

== ENCOUNTER → 2021-03-10 09:02 | Outpatient (CLI) | payer OTHER, SELFPAY | PROVIDERS: PCP Nurse Practitioner Family; Visit Provider Obstetrics & Gynecology | DX: Z34.90 Encounter for supervision of normal pregnancy, unspecified, unspecified trimester (principal) | CPT/HCPCS: 36415; 84702 ==

== ENCOUNTER → 2021-03-27 15:10 | Outpatient (CLI) | payer OTHER, SELFPAY ==
[2021-03-27 15:49] LABS: Basophils # 0.1 K/mm3 (0-0.2); Basophils % 1.1 % (0.1-2.0); Eosinophils # 0.1 K/mm3 (0.0-0.4); Eosinophils % 1.4 % (0.1-12.0); Hematocrit 36.9 % (37.0-47.0); Hemoglobin 11.8 g/dL (12.2-16.2); Lymphocytes % 25.1 % (10-50); Mean Corpuscular HGB Conc 31.9 g/dL (31.8-35.4); Mean Corpuscular Hemoglobin 25.3 pg (27.0-31.2); Mean Corpuscular Volume 79.4 fl (81-99); Mean Platelet Volume 7.5 fl (7.4-10.4); Monocytes # 0.4 K/mm3 (0.1-1.0); Monocytes % 5.4 % (1.7-9.3); Neutrophils # 5.4 K/mm3 (1.8-7.8); Neutrophils % 67.1 % (37.0-80.0); Platelet Count 342 K/mm3 (142-424); Red Blood Count 4.65 M/mm3 (4.20-5.40); Red Cell Distribution Width 15.4 % (11.5-17.5); White Blood Count 8.1 K/mm3 (4.8-10.8)
[2021-03-29 08:18] LABS: HIV Screen 4th Generation wRfx Non Reactive (Non Reactive); Hepatitis B Surface Antigen Negative (Negative); Hepatitis C Antibody <0.1 s/co ratio (0.0-0.9); Rubella Antibodies, IgG 2.49 index (Immune >0.99)
[2021-03-29 10:12] LABS: Rapid Plasma Reagin Ab Titer Non Reactive (NonRea<1:1)
== END ==
PROVIDERS: PCP Nurse Practitioner Family; Visit Provider Obstetrics & Gynecology
DX: Z34.90 Encounter for supervision of normal pregnancy, unspecified, unspecified trimester (principal)
CPT/HCPCS: 36415; 85025; 86592; 86703; 86762; 86850; 87340; 87380; G0432

== ENCOUNTER → 2021-06-06 14:38 | Outpatient (CLI) | payer OTHER, SELFPAY ==
--- NOTE | 2021-06-06 14:42 | US_ITS ---
FINAL REPORT CLINICAL HISTORY: anatomy scan, OB complete; obesity FINDINGS: There is a single live intrauterine gestation. Presentation is cephalic. Placenta is posterior. movement is noted. Heart rate is measured at 149 beats per minute. Three-vessel cord with satisfactory umbilical cord insertion. Four-chamber heart is noted. brain and ventricles are unremarkable. Chest and diaphragm are unremarkable. ABDOMEN: Both kidneys are unremarkable. Stomach is unremarkable. SPINE: No anomalies identified. Both arms and legs noted. AMNIOTIC FLUID: Appropriate amount. MEASUREMENTS: ULTRASOUND AGE: 22 weeks 3 days. GESTATION AGE: 22 weeks 4 days. ESTIMATED WEIGHT: 512 g GROWTH PERCENTILE: 41 % BPD: 5.4 cm corresponding with 22 weeks 2 days. OFD: 6.8 cm corresponding with 22 weeks 2 days. HC: 19.2 cm corresponding with 21 weeks 4 days. AC: 17.8 cm corresponding with 22 weeks 5 days. FL: 3.9 cm corresponding with 22 weeks 5 days. CEREBELLUM: 2.3 cm corresponding with 22 weeks 4 days. HUMERUS: 3.6 cm corresponding with 22 weeks 4 days. NUCH FOLD: 2 mm. HC/AC: 1.08 CI: 79% FL/BPD: 74% FL/AC: 22% IMPRESSION: Single living IUP with an ultrasound age of 22 weeks 3 days. Reviewed, Interpreted and Dictated by Sy Beasley III, MD Transcribed by Emily Faulkner Authenticated by Sy Beasley III, MD on 06/06/2021 04:30:44 PM [facility]
== END ==
PROVIDERS: PCP Nurse Practitioner Family; Visit Provider Obstetrics & Gynecology
DX: Z34.90 Encounter for supervision of normal pregnancy, unspecified, unspecified trimester (principal)
CPT/HCPCS: 76805

== ENCOUNTER 2021-07-31 21:18 | Outpatient (CLI) | payer OTHER, SELFPAY ==
[2021-07-31 21:31] VITALS: BMI 42.1
[2021-07-31 21:41] VITALS: BP 124/73; PULSE 89; RESP 18; TEMP 36.9; O2SAT 97; BMI 42.1
[2021-07-31 22:51] LABS: Microscopic, Urine URINE MICROSCOPIC (MICROSCOPIC)
[2021-07-31 22:55] LABS: Appearance,Urine CLEAR (Clear); Bilirubin,Urine Negative (Negative); Blood, Urine Negative (Negative); Color,Urine YELLOW (Yellow); Glucose,Urine (UA) Negative (Negative); Ketones,Urine Negative (Negative); Leukocyte Esterase,Urine Negative (Negative); Nitrate,Urine Negative (Negative); Protein,Urine Negative (Negative); Urobilinogen,Urine 0.2 EU/dl (0.2)
[2021-07-31 23:03] LABS: Squamous Epithelial Cell,Urine Occasional #/hpf (0-5); WBC,Urine Occasional #/hpf (0-3)
[2021-07-31 23:06] LABS: Amphetamine/Metha Screen,Urine Negative ng/ml (<1000)
[2021-07-31 23:07] LABS: Barbiturates Screen,Urine Negative ng/ml (<200); Benzodiazepines Screen,Urine Negative ng/ml (<200)
[2021-07-31 23:09] LABS: Cannabinoid Screen,Urine Negative ng/ml (<50); Cocaine Screen,Urine Negative ng/ml (<300)
[2021-07-31 23:10] LABS: Methadone Screen,Urine Negative ng/ml (<300)
[2021-07-31 23:11] LABS: Opiate Screen,Urine Negative ng/ml (<300)
[2021-07-31 23:12] LABS: Phencyclidine Screen,Urine Negative ng/ml (<25)
== END 2021-07-31 23:12 | disposition home or self-care (01) ==
LOC: OBOUT 21:21 → OB 21:22
PROVIDERS: PCP Obstetrics & Gynecology; Visit Provider Obstetrics & Gynecology
DX: O47.03 False labor before 37 completed weeks of gestation, third trimester (principal); Z3A.30 30 weeks gestation of pregnancy
CPT/HCPCS: 59025; 80305; 81001; G0463

== ENCOUNTER 2021-08-07 22:23 | Outpatient (CLI) | payer OTHER, SELFPAY ==
[2021-08-07 22:29] VITALS: BMI 42.6
[2021-08-07 22:58] LABS: Microscopic, Urine URINE MICROSCOPIC (MICROSCOPIC)
[2021-08-07 23:00] VITALS: BP 122/89; PULSE 83; RESP 17; TEMP 36.6; O2SAT 98; BMI 42.6
[2021-08-07 23:00] LABS: Appearance,Urine CLEAR (Clear); Bilirubin,Urine Negative (Negative); Blood, Urine Negative (Negative); Color,Urine YELLOW (Yellow); Glucose,Urine (UA) Negative (Negative); Ketones,Urine Negative (Negative); Leukocyte Esterase,Urine Negative (Negative); Nitrate,Urine Negative (Negative); Protein,Urine Negative (Negative); Specific Gravity, Urine 1.015 (1.005-1.030); Urobilinogen,Urine 0.2 EU/dl (0.2)
[2021-08-07 23:11] LABS: Benzodiazepines Screen,Urine Negative ng/ml (<200)
[2021-08-07 23:12] LABS: Amphetamine/Metha Screen,Urine Negative ng/ml (<1000); Barbiturates Screen,Urine Negative ng/ml (<200)
[2021-08-07 23:13] LABS: Methadone Screen,Urine Negative ng/ml (<300)
[2021-08-07 23:14] LABS: Cannabinoid Screen,Urine Negative ng/ml (<50); Cocaine Screen,Urine Negative ng/ml (<300)
[2021-08-07 23:15] LABS: Opiate Screen,Urine Negative ng/ml (<300)
[2021-08-07 23:16] LABS: Phencyclidine Screen,Urine Negative ng/ml (<25)
[2021-08-07 23:17] LABS: Bacteria,Urine 1+ /lpf
== END 2021-08-07 23:35 | disposition home or self-care (01) ==
LOC: OBOUT 22:27 → OB 22:27
PROVIDERS: PCP Nurse Practitioner Family; Visit Provider Obstetrics & Gynecology
DX: O47.03 False labor before 37 completed weeks of gestation, third trimester (principal); Z3A.31 31 weeks gestation of pregnancy
CPT/HCPCS: 59025; 80305; 81001; G0463

== ENCOUNTER 2021-09-05 17:15 | Emergency (ER) | payer OTHER, SELFPAY ==
[2021-09-05 17:17] VITALS: BP 137/86; PULSE 103; RESP 17; TEMP 36.8; O2SAT 97; BMI 42.9
--- NOTE | 2021-09-05 17:32 | PC.NURSE ---
Heart tones noted to left of umbilicus at 159 bpm
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
--- NOTE | 2021-09-05 17:35 | PC.NURSE ---
VIVEK HERNANDEZ speaking with dr. dorantes (ob)
--- NOTE | 2021-09-05 17:37 | PC.NURSE ---
advises that Dr Gaspar wishes to send pt upstairs to OB for further evaluation. Report called to ILEANA Monsalve in OB. Monica transporting pt via w/c to OB at this time.
[2021-09-05 17:45] VITALS: BP 137/86; PULSE 103; RESP 18; TEMP 36.7; O2SAT 97
== END 2021-09-05 17:50 | disposition still patient (30) ==
PROVIDERS: Emergency Provider Emergency Medicine; PCP Nurse Practitioner Family
DX: O9A.213 Injury, poisoning and certain other consequences of external causes complicating pregnancy, third trimester (principal); S40.022A Contusion of left upper arm, initial encounter; S80.02XA Contusion of left knee, initial encounter; S10.91XA Abrasion of unspecified part of neck, initial encounter; O99.619 Diseases of the digestive system complicating pregnancy, unspecified trimester; K21.9 Gastro-esophageal reflux disease without esophagitis; Z79.1 Long term (current) use of non-steroidal anti-inflammatories (NSAID); Z79.899 Other long term (current) drug therapy; Z87.891 Personal history of nicotine dependence; Z3A.35 35 weeks gestation of pregnancy; V49.40XA Driver injured in collision with unspecified motor vehicles in traffic accident, initial encounter
CPT/HCPCS: 99282

== ENCOUNTER 2021-09-05 17:50 | Outpatient (CLI) | payer OTHER, SELFPAY ==
[2021-09-05 17:58] VITALS: BMI 42.9
[2021-09-05 18:34] LABS: Microscopic, Urine URINE MICROSCOPIC (MICROSCOPIC)
[2021-09-05 18:48] LABS: Appearance,Urine CLEAR (Clear); Blood, Urine Negative (Negative); Color,Urine YELLOW (Yellow); Glucose,Urine (UA) Negative (Negative); Ketones,Urine Negative (Negative); Leukocyte Esterase,Urine Negative (Negative); Nitrate,Urine Negative (Negative); PH,Urine 6.5 (5.0-8.5); Protein,Urine 2+ (Negative); Specific Gravity, Urine 1.025 (1.005-1.030); Urobilinogen,Urine 0.2 EU/dl (0.2)
[2021-09-05 18:51] LABS: Bilirubin,Urine 1+ (Negative)
[2021-09-05 19:00] LABS: Bacteria,Urine 1+ /lpf; RBC,Urine Occasional #/hpf (0-3)
[2021-09-05 19:01] LABS: Barbiturates Screen,Urine Negative ng/ml (<200); Benzodiazepines Screen,Urine Negative ng/ml (<200)
[2021-09-05 19:02] LABS: Amphetamine/Metha Screen,Urine Negative ng/ml (<1000); Methadone Screen,Urine Negative ng/ml (<300)
[2021-09-05 19:03] LABS: Cannabinoid Screen,Urine Negative ng/ml (<50)
[2021-09-05 19:04] LABS: Cocaine Screen,Urine Negative ng/ml (<300); Opiate Screen,Urine Negative ng/ml (<300)
[2021-09-05 19:05] LABS: Phencyclidine Screen,Urine Negative ng/ml (<25)
== END 2021-09-05 23:07 | disposition home or self-care (01) ==
LOC: OBOUT 17:52 → OB 17:53
PROVIDERS: PCP Nurse Practitioner Family; Visit Provider Obstetrics & Gynecology
DX: O26.893 Other specified pregnancy related conditions, third trimester (principal); Z3A.35 35 weeks gestation of pregnancy; V49.88XD Car occupant (driver) (passenger) injured in other specified transport accidents, subsequent encounter
CPT/HCPCS: 36415; 59025; 80305; 81001; 86850; G0463

== ENCOUNTER → 2021-09-12 05:58 | Outpatient (CLI) | payer OTHER, SELFPAY | PROVIDERS: Visit Provider Obstetrics & Gynecology | DX: Z34.90 Encounter for supervision of normal pregnancy, unspecified, unspecified trimester (principal) | CPT/HCPCS: 86403 ==

== ENCOUNTER 2021-09-29 04:57 | Inpatient (IN) | payer OTHER, SELFPAY ==
[2021-09-29 05:00] VITALS: BMI 43.5
[2021-09-29 05:33] VITALS: BP 169/88; PULSE 84; RESP 18; O2SAT 95; BMI 43.5
[2021-09-29 05:37] LABS: Basophils # 0.1 K/mm3 (0-0.2); Basophils % 0.9 % (0.1-2.0); Eosinophils # 0.1 K/mm3 (0.0-0.4); Eosinophils % 1.1 % (0.1-12.0); Hematocrit 37.6 % (37.0-47.0); Hemoglobin 12.2 g/dL (12.2-16.2); Lymphocytes # 2.7 K/mm3 (0.7-4.5); Lymphocytes % 26.5 % (10-50); Mean Corpuscular HGB Conc 32.3 g/dL (31.8-35.4); Mean Corpuscular Hemoglobin 27.5 pg (27.0-31.2); Mean Corpuscular Volume 85.1 fl (81-99); Mean Platelet Volume 8.7 fl (7.4-10.4); Monocytes # 0.8 K/mm3 (0.1-1.0); Monocytes % 7.9 % (1.7-9.3); Neutrophils # 6.4 K/mm3 (1.8-7.8); Neutrophils % 63.5 % (37.0-80.0); Platelet Count 304 K/mm3 (142-424); Red Blood Count 4.42 M/mm3 (4.20-5.40); Red Cell Distribution Width 14.6 % (11.5-17.5); White Blood Count 10.1 K/mm3 (4.8-10.8)
[2021-09-29 05:38] LABS: Coronavirus 19, PCR Not Detected (NotDetected); Influenza A, PCR Not Detected (NotDetected); Influenza B, PCR Not Detected (NotDetected)
[2021-09-29 05:38] LABS: Microscopic, Urine URINE MICROSCOPIC (MICROSCOPIC)
[2021-09-29 05:43] LABS: Appearance,Urine CLEAR (Clear); Bilirubin,Urine Negative (Negative); Blood, Urine Negative (Negative); Color,Urine YELLOW (Yellow); Glucose,Urine (UA) Negative (Negative); Ketones,Urine TRACE (Negative); Leukocyte Esterase,Urine Negative (Negative); Nitrate,Urine Negative (Negative); PH,Urine 6.5 (5.0-8.5); Protein,Urine Negative (Negative); Specific Gravity, Urine 1.025 (1.005-1.030)
[2021-09-29 05:46] LABS: Amorphous Sediment,Urine Trace /lpf; Renal Epithelial Cells,Urine Occasional #/lpf (0); Squamous Epithelial Cell,Urine Occasional #/hpf (0-5); WBC,Urine Occasional #/hpf (0-3)
[2021-09-29 05:47] LABS: Anion Gap 9.8 mEq/L (5-15); Blood Urea Nitrogen 13 mg/dl (7-17); Calcium 8.8 mg/dl (8.4-10.2); Carbon Dioxide 18 mmol/L (22.0-30.0); Chloride 111 mmol/L (98-107); Creatinine Clearance Estimated 117 mL/min (50-200); Estimated Glomerular Filt Rate 104 ml/min (>60); GFR (African American) 125 ML/MIN (>60); Glucose 103 mg/dl (74-100); Potassium 3.8 mmoL/L (3.5-5.1); Sodium 135 mmol/L (136-145)
[2021-09-29 05:54] LABS: Amphetamine/Metha Screen,Urine Negative ng/ml (<1000); Barbiturates Screen,Urine Negative ng/ml (<200)
[2021-09-29 05:55] LABS: Benzodiazepines Screen,Urine Negative ng/ml (<200)
[2021-09-29 05:56] LABS: Cannabinoid Screen,Urine Negative ng/ml (<50); Cocaine Screen,Urine Negative ng/ml (<300)
[2021-09-29 05:57] LABS: Methadone Screen,Urine Negative ng/ml (<300)
[2021-09-29 05:58] LABS: Opiate Screen,Urine Negative ng/ml (<300); Phencyclidine Screen,Urine Negative ng/ml (<25)
--- NOTE | 2021-09-29 07:22 | P.PN_ITS ---
[facility] Anesthesia Checklist - Patient Identification Patient Identification: Arm Band - Structural Data Admitted From: Inpatient Planned Operative Procedure/s: Repeat C/S Consent for Planned Operative Procedure(s) Verified: Yes Verified Documents: Surgical Consent, History and Physical - NPO Status Verified Time NPO: 00:00 - Additional verifications Anesthesia Reactions: No - Airway Assessment C-Spine Mobility Assessed: Yes TMJ Mobility Assessed: Yes Dentition: Good Dentition - Neurological Assessment Level of Consciousness: Awake, Alert - Anesthesia Plan Anesthesia Risk discussed: Yes Anesthesia Plan: Verified ASA Class: II Anesthesia Type: Spinal (with Bilateral TAP Block) [facility] History I have reviewed the patient's past medical history: Yes Medical History: Reports:: Gastroesophageal Reflux Disease(GERD) Denies:: Diabetes Mellitus Type 1, Diabetes Mellitus Type 2, Hypertension *Have you ever received a pneumonia vaccine?: No *Have you received a flu vaccine this season?: No Other Medical History: Reports: Sinus Problems Anesthesia experience/problems:: nac Laterality Cases: Bilateral: Tonsillectomy Other Surgeries: Yes: Cholecystectomy, Amputation: No Fractures: Yes - *Social History Smoking Status: Former smoker Tobacco Type: smokeless tobacco Alcohol Intake: never Alcohol Intake Frequency:: other Substance Use Type: denies use *Occupational Status:: employed *Travel in the last 8 weeks: None Family Hx:: Diabetes, Cancer, Heart Attack, Hypertension, Hyperlipidemia 

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
[2021-09-29 09:23] VITALS: BP 145/65; PULSE 78; RESP 20; TEMP 36.6; O2SAT 100
--- NOTE | 2021-09-29 09:31 | HMH.ANESI ---
[facility] Anesthesia Record Part I Intake, IV Amount: 1,200 Estimated blood loss (mL): 600 Urine output (mL): 400 Blood Pressure: 135/63 SaO2: 100 Pulse Rate: 75 Respiratory Rate: 22 Temperature: 97.0 F Patient is:: Awake Stable to PACU at:: 09:23
[2021-09-29 09:32] VITALS: BP 135/63; PULSE 75; RESP 22; TEMP 36.1; O2SAT 100
[2021-09-29 09:33] VITALS: BP 141/79; PULSE 75; RESP 16; O2SAT 100
--- NOTE | 2021-09-29 09:35 | P.OP_ITS ---
Date of procedure: 09/29/21 Pre-op Diagnosis:: 1. 39 weeks 2. Previous C Section 3. Short interval between pregnancies 4. Undesired fertility 5. Maternal obesity 6. Maternal anemia Post-op Diagnosis:: same Procedure performed:: 1. Low Transverse C Section 2. Bilateral Tubal Ligation Surgeon:: Zuly Gaspar MD MEMBERSHIP SECRETARY:: Other Anesthesia: spinal Estimated blood loss (mL): 700 Operative findings:: vigorous female infant in vertex presentation clear amniotic fluid normal appearing uterus, fallopian tubes and ovaries Operative note:: The patient was taken to the OR and spinal was administered without difficulty. She was prepped and draped in normal sterile fashion. A pfannenstiel skin incision was made with the scalpel and carried down to the fascia. The fascia was incised in the midline and sharply dissected off the rectus muscles. The muscles were in the midline and the peritoneum was entered sharply and extended bluntly. The Arpan-O self retaining retractor was placed in the abdomen and a bladder flap was created. The uterus was incised in the lower uterine segment in a transverse fashion and extended bluntly. Amniotomy was performed and clear fluid noted. The infant was delivered in controlled fashion, without complication or shoulder dystocia. The was vigorous at and handed to awaiting pull over machine operator and nursing staff for evaluation after the umbilical cord was clamped and cut. Cord blood was collected and a cord segment was preserved. The placenta was manually extracted and noted to be intact. The uterus was repaired with 0-vicryl in a running/locked fashion. A second layer was placed for hemostasis. Filshie clips were applied to both fallopian tubes, with complete occlusion noted. The peritoneum was closed with 2-0 vicryl in a running fashion. The fascia was closed with #1 vicryl in a running fashion. The subcutaneous fat was closed with 2-0 vicryl in an interrupted fashion. The skin was closed with 2-0 stratafix in a subcuticular fashion. The patient tolerated the procedure well. Sponge, lap, needle and instrument counts were correct x 2. TAP block was placed by anesthesia following conclusion of procedure. She was taken to PACU awake and in stable condition. Condition: stable Disposition: PACU Specimens:: placenta Complications:: none
[2021-09-29 09:43] VITALS: BP 140/85; PULSE 84; RESP 16; O2SAT 100
--- NOTE | 2021-09-29 12:32 | HMH.ANESII ---
[facility] Anesthesia Record Part II Discharge Time: 09:43 Destination: Obstetric PACU nurse assessment reviewed?: Yes Patient Condition:: Good Anesthesia Complications:: None Swallowing reflex intact?: Yes Cyanosis?: No Blood Pressure: 140/85 Pulse Rate: 84 Temperature: 97.9 F Mental Status: Alert & Oriented Pain level:: 0 Nausea and/or vomitting:: None Intake, IV Amount: 0
[2021-09-29 12:33] VITALS: BP 140/85; PULSE 84; TEMP 36.6
[2021-09-29 14:55] LABS: Microscopic,Cath URINE MICROSCOPIC (MICROSCOPIC)
[2021-09-29 14:56] LABS: Appearance,Urine/Cath CLEAR (Clear); Bilirubin,Cath Negative (Negative); Blood, Urine/Cath Negative (Negative); Color,Urine/Cath YELLOW (Yellow); Glucose,Urine/Cath (UA) Negative (Negative); Ketones,Urine/Cath Negative (Negative); Leukocyte Esterase,Cath Negative (Negative); Nitrate,Cath Negative (Negative); Protein,Urine/Cath Negative (Negative); Specific Gravity, Urine/Cath 1.025 (1.005-1.030); Urobilinogen,Cath 0.2 EU/dl (0.2)
[2021-09-30 07:11] LABS: Hematocrit 32.2 % (37.0-47.0); Hemoglobin 10.5 g/dL (12.2-16.2)
--- NOTE | 2021-09-30 10:15 | HMH.PHAVTE ---
[facility] Pharmacy VTE Monitoring - Patient Demographics Admission date: 09/29/21 Report Date: 09/30/21 Time: 10:15 Allergies/Adverse Reactions: Patient Allergies No Known Allergies Allergy (Verified 09/26/21 16:12) Height: 1.68 m Weight: 122.47 kg Patient Problems: Current Active Problems 39 weeks gestation of (Acute) tubal ligation planned (Acute) Short interval between pregnancies affecting , antepartum (Acute) Anemia during (Acute) Morbid obesity with body mass index (BMI) of 40.0 to 49.9 (Acute) Rh negative status during (Acute) History of section (Acute) - VTE Risk Labs: VTE Related Lab Results Hgb 10.5 g/dL (12.2-16.2) L 09/30/21 06:50 Hct 32.2 % (37.0-47.0) L 09/30/21 06:50 Plt Count 304 K/mm3 (142-424) 09/29/21 05:30 BUN 13 mg/dl (7-17) 09/29/21 05:30 Creatinine 0.70 mg/dl (0.52-1.04) 09/29/21 05:30 Estimated Creat Clear 117 mL/min (50-200) 09/29/21 05:30 - Prophylaxis VTE Prophylaxis Ordered?: Yes Types of VTE Prophylaxis: IPCS Thigh High Location of Applied Device: Bilateral Lower Extremeties
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
== END 2021-09-30 17:00 | disposition home or self-care (01) | DRG 785 ==
PROVIDERS: Nurse Practitioner Obstetrics & Gynecology; Admitting Provider Obstetrics & Gynecology; PCP Nurse Practitioner Family; Visit Provider Obstetrics & Gynecology
PROC: 0UL70ZZ Occlusion of Bilateral Fallopian Tubes, Open Approach (ICD-10-PCS; CPT 59514; principal; 2021-09-29 07:30)
DX: O34.211 Maternal care for low transverse scar from previous cesarean delivery (principal); N85.8 Other specified noninflammatory disorders of uterus; Z3A.39 39 weeks gestation of pregnancy; Z37.0 Single live birth; Z30.2 Encounter for sterilization; D64.9 Anemia, unspecified; O99.019 Anemia complicating pregnancy, unspecified trimester
CPT/HCPCS: 59514; 58611; 36415; 59025; 80048; 80305; 81001; 85014; 85018; 85025; 86850; 86870; C9290; C9803; J2405; U0003; U0005

== ENCOUNTER 2022-02-06 14:30 | Emergency (ER) | payer OTHER, SELFPAY ==
[2022-02-06 14:31] VITALS: BP 130/66; PULSE 90; RESP 18; TEMP 36.8; O2SAT 97; BMI 41.9
--- NOTE | 2022-02-06 14:46 | HMH.EDGENADL ---
Discharge Plan Disposition Patient Disposition: Home, Self-Care Chief Complaint: Upper Respiratory Infection Prescriptions Prescriptions: No Action omeprazole 20 mg capsule,delayed release(DR/EC) 20 mg PO DAILY Label Comments: TAKE 1 CAPSULE 1 TIME EACH DAY loratadine 10 MG tablet 10 mg PO DAILY Label Comments: TAKE 1 TABLET ONCE A DAY AT BEDTIME Referrals Follow up/Referrals: Theresa Joel APRN [Primary Care Provider] - See instructions Activity Restrictions/Add. Instructions Additional Instructions/Restrictions: At this time was felt you are safe to be discharged home. If new or worsening symptoms please not hesitate to return for continued evaluation Clinical Impressions Clinical Impression: Influenza A Discharge ED Provider: Mushtaq Camara General Adult HPI General Chief complaint: Upper Respiratory Infection Stated complaint: sore throat, cough, Rt ear pain, drainage Time Seen by Provider: 02/06/22 14:46 History of Present Illness HPI narrative: Patient is a 21-year-old female with past medical history of previous tonsillectomy who presents emergency department for evaluation of cough, sore throat, subjective fever. Onset was acute, occurring over the last 24 to 48 hours. Symptoms are moderate in severity. Adequate p.o. intake and urine output. No other acute complaints at this time. Related Data Home Medications Medication Instructions Recorded Confirmed loratadine 10 mg tablet 10 mg PO DAILY Allergy symptoms 12/22/17 10/30/21 omeprazole 20 mg capsule,delayed 20 mg PO DAILY Reflux/Acid reflux 11/28/19 10/30/21 release Allergies Allergy/AdvReac Type Severity Reaction Status Date / Time No Known Allergies Allergy Verified 10/30/21 14:39 [facility] Disclaimer: The information contained in this section may have been updated after the patient was seen, as this information can be updated by other users. Medical History GERD (gastroesophageal reflux disease) Left elbow fracture Sinus problem Surgical History History of section History of cholecystectomy History of colposcopy History of loop electrical excision procedure (LEEP) History of tonsillectomy Family History Other Cancer Heart attack Hyperlipidemia Hypertension Social History Smoking Status: Current every day smoker tobacco type: smokeless tobacco alcohol intake: never substance use type: denies use current occupational status: employed Travel in the last 8 weeks: None ROS Obtained: Yes Systems reviewed as appropriate & no additional complaints except as documented Physical Exam General General appearance: alert and in no apparent distress Head Head exam: atraumatic and normocephalic Eye Eye exam: Present PERRL and EOMI ENT ENT exam: Present mucous membranes moist and TM's normal bilaterally Neck Neck exam: Present normal inspection Chest Chest inspection: Present normal inspection and symmetric chest wall rise Respiratory Respiratory exam: Present normal lung sounds bilaterally; Absent respiratory distress Cardiovascular Cardiovascular exam: Present regular rate and normal rhythm Abdominal Exam Abdominal exam: Present soft; Absent tenderness Extremities Exam Extremities exam: Present normal inspection Neurological Exam Neurological exam: Present alert and oriented X3 Psychiatric Psychiatric exam: Present normal affect Skin Skin exam: Present warm and dry Medical Decision Making Pepe Inquiry Pt receiving controlled substance: No Vital Signs: 02/06/22 14:31 Temperature 98.3 F Temperature Source Oral Pulse Rate [Right Radial] 90 Respiratory Rate 18 Blood Pressure [Right Arm] 130/66 Blood Pressure Mean [Right Arm] 87 Blo
[2022-02-06 14:51] LABS: Coronavirus 19, PCR Not Detected (NotDetected); Influenza B, PCR Not Detected (NotDetected)
[2022-02-06 15:43] LABS: Influenza A, PCR Detected (NotDetected)
--- NOTE | 2022-02-06 15:47 | PC.NURSE ---
VIVEK HERNANDEZ at for update on POC
[2022-02-06 16:08] VITALS: BP 130/66; PULSE 90; RESP 18; TEMP 36.8; O2SAT 97
== END 2022-02-06 16:08 | disposition home or self-care (01) ==
PROVIDERS: Emergency Provider Emergency Medicine; PCP Nurse Practitioner Family
DX: J10.1 Influenza due to other identified influenza virus with other respiratory manifestations (principal)
CPT/HCPCS: 99282; C9803; U0003; U0005

== ENCOUNTER 2022-03-20 14:31 | Emergency (ER) | payer OTHER, SELFPAY ==
[2022-03-20 15:35] VITALS: BP 136/83; PULSE 89; RESP 19; TEMP 37.1; O2SAT 99; BMI 42.4
[2022-03-20 15:42] LABS: Apearance,Urine Clear (Clear); Bilirubin,Urine Negative (Negative); Blood, Urine Negative (Negative); Color,Urine Yellow (Yellow); Glucose,Urine (UA) Negative (Negative); Ketones,Urine Negative (Negative); Protein,Urine Negative (Negative); Specific Gravity, Urine 1.025 (1.005-1.030); UTC Leukocyte Esterase,Urine Negative (Negative); UTC Nitrate,Urine Negative (Negative); Urobilinogen,Urine 0.2 EU/dl (0.2)
--- NOTE | 2022-03-20 15:49 | EXP.UTC ---
Discharge Plan Disposition Patient Disposition: Home, Self-Care Condition: Good Prescriptions Prescriptions: No Action omeprazole 20 mg capsule,delayed release(DR/EC) 20 mg PO DAILY Label Comments: TAKE 1 CAPSULE 1 TIME EACH DAY loratadine 10 MG tablet 10 mg PO DAILY Label Comments: TAKE 1 TABLET ONCE A DAY AT BEDTIME Referrals Follow up/Referrals: Theresa Joel APRN [Primary Care Provider] - See instructions Activity Restrictions/Add. Instructions Additional Instructions/Restrictions: *Ibuprofen safia 6 hours with meal as needed for pain/inflammation *Not additional anti-inflammatory like motrin, aleve, advil with the above amount of ibuprofen. You can still take Tylenol every 4 hours as needed if you need something else for pain *Ice 20 minutes every 2 hours for the first 48 hours after the initial injury followed by moist heat every 20 minutes 3-4 times a day to affected area Start oral steriods *Keep this area active, no movement leads to more stiffness, However take it easy and avoid heavy lifting pushing or pulling *Follow up with you family doctor if no improvement for further treatment Clinical Impressions Clinical Impression: Low back pain Stand Alone Forms Stand Alone Forms: Work/School Release Instructions Patient Instructions: DI for Sciatica, DI for Back Pain With Sciatica, Methylprednisolone Discharge ED Provider: Kalpana Martínez [facility] General Stated complaint: Back Pain Mode of Arrival: Ambulatory Source of Information: Patient Limitations: No Limitations Time Seen by Provider: 03/20/22 15:50 Description of Symptoms (Recalled from Triage Doc. by RN): PATIENT C/O SHARP PAIN TO LOWER BACK THAT RADIATES DOWN RIGHT LEG X 1 WEEK HEENT Symptoms (Recalled from RN notes): No Resp Symptoms (Recalled from RN notes): No Skin Symptoms (Recalled from RN notes): No MS Symptoms (Recalled from RN notes): Yes Functional Status (Recalled from RN notes): WNL History of Present Illness Provider Complaint: Patient states that she has been having pain in her right lower back area that radiates into her right upper leg States that pain feels like when she was and had sciatica States that pain is worse with movement and sitting on that side Related Data Home Medications Medication Instructions Recorded Confirmed loratadine 10 mg tablet 10 mg PO DAILY Allergy symptoms 12/22/17 10/30/21 omeprazole 20 mg capsule,delayed 20 mg PO DAILY Reflux/Acid reflux 11/28/19 10/30/21 release Allergies Allergy/AdvReac Type Severity Reaction Status Date / Time No Known Allergies Allergy Verified 10/30/21 14:39 Worker's Comp Is this a Worker's Comp case?: No [facility] Disclaimer: The information contained in this section may have been updated after the patient was seen, as this information can be updated by other users. Medical History (Updated 03/20/22 @ 16:19 by Kalpana Martínez APRN) GERD (gastroesophageal reflux disease) Left elbow fracture Migraine Sinus problem Surgical History History of section History of cholecystectomy History of colposcopy History of loop electrical excision procedure (LEEP) History of tonsillectomy Family History Other Cancer Heart attack Hyperlipidemia Hypertension Social History (Updated 03/20/22 @ 15:48 by Charito Montilla RN) Smoking Status: Current every day smoker tobacco type: smokeless tobacco alcohol intake: never substance use type: denies use current occupational status: employed Travel in the last 8 weeks: None ROS Obtained: Yes All systems reviewed & no additional complaints except as documented and Yes Systems reviewed as appropriate & no additional complaints except as documented Constitutional Constitutional: Reports system reviewed and no additional complaints, except as do
[2022-03-20 16:08] LABS: UTC Pregnancy Test, Urine Negative (Negative)
[2022-03-20 16:26] VITALS: BP 136/87; PULSE 79; RESP 19; TEMP 36.8; O2SAT 99
== END 2022-03-20 16:27 | disposition home or self-care (01) ==
PROVIDERS: Emergency Provider Nurse Practitioner; PCP Nurse Practitioner Family
DX: M54.50 Low back pain, unspecified (principal)
CPT/HCPCS: 81003; 81025; 99212; 99213; G0463

== ENCOUNTER 2022-09-02 18:02 | Emergency (ER) | payer OTHER, SELFPAY ==
[2022-09-02 18:02] VITALS: BP 114/62; PULSE 94; RESP 18; TEMP 36.6; O2SAT 98; BMI 41.9
--- NOTE | 2022-09-02 18:26 | EXP.UTC ---
Discharge Plan Disposition Patient Disposition: Home, Self-Care Condition: Good Prescriptions Prescriptions: New naproxen 500 mg tablet 500 mg PO BID PRN (Reason: pain) Qty: 30 0RF promethazine 25 mg tablet 25 mg PO TID PRN (Reason: nausea and vomiting) Qty: 20 0RF No Action omeprazole 20 mg capsule,delayed release(DR/EC) 20 mg PO DAILY Patient Comments: TAKE 1 CAPSULE 1 TIME EACH DAY methylprednisolone [Medrol (Herminio)] 4 mg tablets,dose pack See Rx Instructions .Route .COMPLEX 6 Days Qty: 21 0RF Rx Instructions: taper pack; loratadine 10 MG tablet 10 mg PO DAILY Patient Comments: TAKE 1 TABLET ONCE A DAY AT BEDTIME Referrals Follow up/Referrals: Theresa Joel APRN [Primary Care Provider] - See instructions Activity Restrictions/Add. Instructions Additional Instructions/Restrictions: Drink plenty of fluids. Take the medications as directed. Follow up with your regular doctor. GO TO THE ER FOR ANY WORSENING SYMPTOMS Clinical Impressions Clinical Impression: Migraine Instructions Patient Instructions: DI for Migraine, Naproxen, Promethazine Discharge ED Provider: Oskar De La Cruz [facility] HPI General Stated complaint: LOZOYA Mode of Arrival: Ambulatory Source of Information: Patient Limitations: No Limitations Time Seen by Provider: 09/02/22 18:26 Description of Symptoms (Recalled from Triage Doc. by RN): Patient reports having a migraine. States she has had migraines in the past and that this feels just like her other ones. States she took ibuprofen this morning and it isn't working. HEENT Symptoms (Recalled from RN notes): No Resp Symptoms (Recalled from RN notes): No Skin Symptoms (Recalled from RN notes): No MS Symptoms (Recalled from RN notes): Yes Functional Status (Recalled from RN notes): wnl History of Present Illness Provider Complaint: She states that she has a history of migraine headaches. She currently has had a migraine since yesterday evening. She has taken ibuprofen (usually works for her) with no relief. She has also had nausea, but no vomiting. She denies any other symptoms. Related Data Home Medications Medication Instructions Recorded Confirmed loratadine 10 mg tablet 10 mg PO DAILY Allergy symptoms 12/22/17 10/30/21 omeprazole 20 mg capsule,delayed 20 mg PO DAILY Reflux/Acid reflux 11/28/19 10/30/21 release Previous Rx's Medication Instructions Recorded methylprednisolone 4 mg tablets in See Rx Instructions .Route 03/20/22 a dose pack (Medrol (Herminio)) .COMPLEX 6 days #21 tabs naproxen 500 mg tablet 500 mg PO BID PRN pain #30 tabs 09/02/22 promethazine 25 mg tablet 25 mg PO TID PRN nausea and 09/02/22 vomiting #20 tabs Allergies Allergy/AdvReac Type Severity Reaction Status Date / Time No Known Allergies Allergy Verified 10/30/21 14:39 Worker's Comp Is this a Worker's Comp case?: No [facility] Disclaimer: The information contained in this section may have been updated after the patient was seen, as this information can be updated by other users. Medical History (Updated 09/02/22 @ 18:35 by Oskar De La Cruz APRN) GERD (gastroesophageal reflux disease) Left elbow fracture Migraine Sinus problem Surgical History History of section History of cholecystectomy History of colposcopy History of loop electrical excision procedure (LEEP) History of tonsillectomy Family History Other Cancer Heart attack Hyperlipidemia Hypertension Social History (Updated 03/20/22 @ 15:48 by Charito Montilla RN) Smoking Status: Current every day smoker tobacco type: smokeless tobacco alcohol intake: never substance use type: denies use current occupational status: employed Travel in the last 8 weeks: None ROS Obtained: Yes All systems reviewed & no additional complaints except as
[2022-09-02 18:38] VITALS: BP 114/62; PULSE 94; RESP 18; TEMP 36.6; O2SAT 98
== END 2022-09-02 18:39 | disposition home or self-care (01) ==
PROVIDERS: Emergency Provider Nurse Practitioner Family; PCP Nurse Practitioner Family
DX: G43.909 Migraine, unspecified, not intractable, without status migrainosus (principal); R11.0 Nausea; K21.9 Gastro-esophageal reflux disease without esophagitis; F17.200 Nicotine dependence, unspecified, uncomplicated
CPT/HCPCS: 99212; 99214; G0463

== ENCOUNTER 2022-12-11 18:23 | Emergency (ER) | payer OTHER, SELFPAY ==
[2022-12-11 18:24] VITALS: BP 139/83; PULSE 90; RESP 18; TEMP 36.9; O2SAT 97; BMI 39.1
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
[2022-12-11 18:57] VITALS: BP 139/83; PULSE 90; RESP 18; TEMP 36.9; O2SAT 97
== END 2022-12-11 18:56 | disposition home or self-care (01) ==
PROVIDERS: Emergency Provider Nurse Practitioner Family; PCP Nurse Practitioner Family
DX: S39.012A Strain of muscle, fascia and tendon of lower back, initial encounter (principal); F17.210 Nicotine dependence, cigarettes, uncomplicated; K21.9 Gastro-esophageal reflux disease without esophagitis; X50.0XXA Overexertion from strenuous movement or load, initial encounter
CPT/HCPCS: 99212; 99214; G0463

== ENCOUNTER 2023-05-20 19:02 | Emergency (ER) | payer OTHER, SELFPAY ==
[2023-05-20] VITALS (7 sets, daily range): BP systolic 116–143; BP diastolic 71–95; PULSE 70–104; RESP 18–20; TEMP 36.7; O2SAT 98–100; BMI 40.7
--- NOTE | 2023-05-20 19:05 | HMH.EDGENADL ---
Discharge Plan Disposition Patient Disposition: Home, Self-Care Condition: Good Prescriptions Prescriptions: New methocarbamol 750 mg tablet 750 mg PO Q8H PRN (Reason: muscle spasm) Qty: 10 0RF No Action omeprazole 20 mg capsule,delayed release(DR/EC) 20 mg PO DAILY Patient Comments: TAKE 1 CAPSULE 1 TIME EACH DAY methylprednisolone [Medrol (Herminio)] 4 mg tablets,dose pack See Rx Instructions .Route .COMPLEX 6 Days Qty: 21 0RF Rx Instructions: taper pack; naproxen 500 mg tablet 500 mg PO BID PRN (Reason: pain) Qty: 30 0RF promethazine 25 mg tablet 25 mg PO TID PRN (Reason: nausea and vomiting) Qty: 20 0RF cyclobenzaprine 10 mg Tablet 10 mg PO BID PRN (Reason: Muscle Spasm) Qty: 20 0RF methylprednisolone 4 mg Tablets,Dose Pack 4 mg PO DIRECTED Qty: 21 0RF loratadine 10 MG tablet 10 mg PO DAILY Patient Comments: TAKE 1 TABLET ONCE A DAY AT BEDTIME Referrals Follow up/Referrals: Adolfo Melgoza, PT [Physical Therapist] - See instructions Theresa Joel APRN [Primary Care Provider] - See instructions Clinical Impressions Clinical Impression: Sciatica Qualifiers: Laterality: right Qualified Code(s): M54.31 - Sciatica, right side Discharge ED Provider: Allison Prakash General Adult HPI General Chief complaint: Back Pain/Injury Stated complaint: back pain Time Seen by Provider: 05/20/23 19:04 History of Present Illness HPI narrative: Patient presents for evaluation of right low back pain with paresthesias of her right lower extremity. Patient denies trauma and stated that this began suddenly and atraumatically. She has no urinary tract symptoms and denies chest pain shortness of breath fever chills hemoptysis hematochezia melena nausea vomiting diarrhea loss of bowel or bladder function. Related Data Home Medications Medication Instructions Recorded Confirmed loratadine 10 mg tablet 10 mg PO DAILY Allergy symptoms 12/22/17 10/30/21 omeprazole 20 mg capsule,delayed 20 mg PO DAILY Reflux/Acid reflux 11/28/19 10/30/21 release Previous Rx's Medication Instructions Recorded methylprednisolone 4 mg tablets in See Rx Instructions .Route 03/20/22 a dose pack (Medrol (Herminio)) .COMPLEX 6 days #21 tabs naproxen 500 mg tablet 500 mg PO BID PRN pain #30 tabs 09/02/22 promethazine 25 mg tablet 25 mg PO TID PRN nausea and 09/02/22 vomiting #20 tabs cyclobenzaprine 10 mg tablet 10 mg PO BID PRN Muscle Spasm #20 12/11/22 tabs methylprednisolone 4 mg tablets in 4 mg PO DIRECTED #21 tabs 12/11/22 a dose pack methocarbamol 750 mg tablet 750 mg PO Q8H PRN muscle spasm #10 05/20/23 tabs Allergies Allergy/AdvReac Type Severity Reaction Status Date / Time No Known Allergies Allergy Verified 12/11/22 18:44 [facility] Disclaimer: The information contained in this section may have been updated after the patient was seen, as this information can be updated by other users. Medical History (Updated 05/20/23 @ 21:10 by YELENA Cronin) Migraine Left elbow fracture Sinus problem GERD (gastroesophageal reflux disease) Surgical History History of loop electrical excision procedure (LEEP) History of colposcopy History of cholecystectomy History of tonsillectomy History of section Family History Other Cancer Heart attack Hyperlipidemia Hypertension Social History Smoking Status: Current every day smoker tobacco type: smokeless tobacco alcohol intake: never substance use type: denies use current occupational status: employed Travel in the last 8 weeks: None ROS Obtained: Yes Systems reviewed as appropriate & no additional complaints except as documented Physical Exam General General appearance: alert and in no apparent distress Head Head exam: atraumatic and normal inspection Eye Eye exam: Present normal appearance, PERRL and EOMI ENT ENT exam: Present normal exam, normal oropharynx and mucous membranes moist Neck Neck exam: Present normal inspection and full ROM Chest Chest inspection: Present normal inspection and symmetric chest wall rise Respiratory Respiratory exam: Present normal lung sounds bilaterally; Absent respiratory distress Cardiovascular Cardiovascular exam: Present regular rate and normal rhythm Abdominal Exam Abdominal exam: Present soft; Absent tenderness Extremities Exam Extremities exam: Present normal inspection and full ROM Back Exam Back exam: Present normal inspection, full ROM, tenderness (Noted to palp in the midline lumbar dorsal spine as well as the associated bilateral paraspinous muscles) and other (Motor and sensory are intact bilaterally and neurovascularly intact bilaterally in the lower extremities) Neurological Exam Neurological exam: Present alert and oriented X3 Psychiatric Psychiatric exam: Present normal affect and normal mood Skin Skin exam: Present warm, dry and normal color Medical Decision Making Medical Records Medical records reviewed: Yes I reviewed the patient's medical records. [place] Inquiry Pt receiving controlled substance: No Vital Signs: 05/20/23 19:07 05/20/23 19:10 05/20/23 19:15 Temperature 98.0 F Temperature Source Oral Pulse Rate 104 H 98 H Pulse Rate [Left Radial] 96 H Respiratory Rate 18 18 20 Blood Pressure 129/80 139/78 Blood Pressure [Right Arm] 129/80 Blood Pressure Mean 88 90 Blood Pressure Mean [Right Arm] 96 Blood Pressure Source [Right Arm] Automatic Cuff Blood Pressure Position [Right Arm] Sitting 02 Sat by Pulse Oximetry 99 100 98 Oxygen Delivery Method Room Air Room Air Room Air 05/20/23 19:31 05/20/23 21:03 Temperature Temperature Source Pulse Rate 96 H 85 Pulse Rate [Left Radial] Respiratory Rate 18 Blood Pressure 143/88 H 116/95 H Blood Pressure [Right Arm] Blood Pressure Mean 99 99 Blood Pressure Mean [Right Arm] Blood Pressure Source [Right Arm] Blood Pressure Position [Right Arm] 02 Sat by Pulse Oximetry 98 98 Oxygen Delivery Method Room Air Lab Data Lab results reviewed: Yes I reviewed the patient's lab results. Lab Results 05/20/23 19:41: ESR 16, Sodium 139, Potassium 3.8, Chloride 108 H, Carbon Dioxide 24, Anion Gap 10.8, BUN 11, Creatinine 0.60, Estimated Creat Clear 269, Estimated GFR 123, Est GFR ( Amer) 149, Glucose 123 H, Calcium 9.3, Total Bilirubin 0.3, AST 30, ALT 25, Alkaline Phosphatase 80, Total Protein 7.4, Albumin 4.2, Globulin 3.2, Albumin/Globulin Ratio 1.3, Serum HCG, Qual Negative 05/20/23 19:43: Urine Color Yellow, Urine Appearance Sl cloudy, Urine pH 7.5, Ur Specific [place] 1.020, Urine Protein Negative, Urine Glucose (UA) Negative, Urine Ketones Negative, Urine Blood Negative, Urine Nitrate Negative, Urine Bilirubin Negative, Urine Urobilinogen 0.2, Ur Leukocyte Esterase Negative, Urine RBC None, Urine WBC Occasional, Ur Squamous Epith Cells Occasional, Urine Bacteria None 05/20/23 19:41 Orders (Tests/Meds): ED MEDICATIONS Discontinued Medications Generic Name Dose Route Start Last Admin Trade Name Josselin PRN Reason Stop Dose Admin Acetaminophen 1,000 mg 05/20/23 19:09 05/20/23 19:22 Acetaminophen 500mg Tab PO 05/20/23 19:10 1,000 mg ONCE ONE Administration Dexamethasone Sodium Phosphate 10 mg 05/20/23 19:09 05/20/23 19:23 Dexamethasone 4mg/Ml 1ml Vial IM 05/20/23 19:10 10 mg ONCE ONE Administration Ketorolac Tromethamine 15 mg 05/20/23 19:09 05/20/23 19:22 Ketorolac 30mg/Ml Vial IV 05/20/23 19:10 15 mg ONCE ONE Administration Methocarbamol 500 mg 05/20/23 21:03 05/20/23 21:25 Methocarbamol 500mg Tablet PO 05/20/23 21:04 500 mg ONCE ONE Administration ORDERS Category Date Time Status CT lumbar spine wo con Stat Cat Scan 05/20/23 19:09 Taken CMP [Comprehensive Metabolic Panel] Stat Lab 05/20/23 19:41 Completed ESR [Erythrocyte Sedimentation Rate] Stat Lab 05/20/23 19:41 Completed HCG Qualitative, Serum Stat Lab 05/20/23 19:41 Completed UA [Urinalysis and Microscopic] Stat Lab 05/20/23 19:43 Completed Medical Decision Narrative: In summary patient is a 22-year-old female who presents to the emergency department for evaluation of right low back pain with right lower extremity paresthesia. Patient is hemodynamically stable upon arrival, afebrile. Physical exam is remarkable for bilateral lumbar paraspinous muscle tenderness to palpation along with tenderness in the midline lumbar spine. There is no focal neurologic deficits and motor and sensory are intact.. Differential diagnosis includes degenerative disc disease versus sciatica. Initial workup will be conducted with hematologic labs CT scan of the lumbar spine. Initial interventions include Toradol acetaminophen and Decadron. Initial workup reviewed by me shows that her hematologic labs are nonactionable. My informal interpretation of her CT scan shows no acute processes radiologist read pending. Upon repeat evaluation reports that she has had no relief with the initial medication regimen. Will order a p.o. dose of Robaxin now. After reassessment again patient reports no worsening but very little improvement thus far. We have been having a technical issue in transmitting the images to the radiologist reads of the read is delayed. I discussed this with the patient and via shared decision making patient elected to go ahead and be discharged with the regimen as follows alternating Tylenol with Motrin every 4 hours along with a short course of p.o. steroids and muscle relaxers. She will be referred to physical therapy. Patient will follow-up with PCP to assess her progress Critical Care Critical Care Time Critical Care Time: No
--- NOTE | 2023-05-20 19:09 | CT_ITS ---
FINAL REPORT TECHNIQUE: Axial CT images were obtained through the lumbar spine. Sagittal and coronal reformatted images were generated from the axial data set and provided for interpretation. This study was performed with techniques to keep radiation doses as low as reasonably achievable (ALARA). Individualized dose reduction techniques using automated exposure control or adjustment of mA and/or kV according to the patient's size were employed. CLINICAL HISTORY: Paresthesia, right back pain radiating to right knee FINDINGS: No acute fracture or malalignment of the lumbar spine. The lumbar lordosis is preserved. The vertebral body heights are maintained. The facets are appropriately aligned. Multilevel degenerative changes are present. There is an L4-5 disc bulge. No acute paraspinal abnormalities. IMPRESSION: No acute fracture or malalignment of the lumbar spine. L4-5 disc bulge and multilevel degenerative changes. Reviewed, Interpreted and Dictated by Brett Martinez MD Transcribed by Meredith Gaspar Authenticated and [facility]
[2023-05-20] MEDS: KETOROLAC 30MG/ML VIAL 15 MG IV (19:22)
[2023-05-20] MEDS: ACETAMINOPHEN 500MG TAB 1000 MG PO (19:22)
[2023-05-20] MEDS: DEXAMETHASONE 4MG/ML 1ML VIAL 10 MG IM (19:23)
[2023-05-20 19:48] LABS: Microscopic, Urine URINE MICROSCOPIC (MICROSCOPIC)
[2023-05-20 19:58] LABS: Alanine Aminotransferase 25 U/L (12-78); Albumin Level 4.2 g/dl (3.5-5.0); Albumin/Globulin Ratio 1.3 (1.1-1.8); Alkaline Phosphatase 80 U/L (38-126); Anion Gap 10.8 mEq/L (5-15); Aspartate Amino Transferase 30 U/L (14-36); Bilirubin,Total 0.3 mg/dl (0.2-1.3); Blood Urea Nitrogen 11 mg/dl (7-17); Calcium 9.3 mg/dl (8.4-10.2); Carbon Dioxide 24 mmol/L (22.0-30.0); Chloride 108 mmol/L (98-107); Creatinine Clearance Estimated 269 mL/min (50-200); Estimated Glomerular Filt Rate 123 ml/min (>60); GFR (African American) 149 ML/MIN (>60); Globulin 3.2 g/dL (1.3-3.2); Glucose 123 mg/dl (74-100); Potassium 3.8 mmoL/L (3.5-5.1); Sodium 139 mmol/L (136-145); Total Protein,Serum 7.4 g/dl (6.3-8.2)
[2023-05-20 19:59] LABS: Appearance,Urine SL CLOUDY (Clear); Bilirubin,Urine Negative (Negative); Blood, Urine Negative (Negative); Color,Urine YELLOW (Yellow); Glucose,Urine (UA) Negative (Negative); Ketones,Urine Negative (Negative); Leukocyte Esterase,Urine Negative (Negative); Nitrate,Urine Negative (Negative); PH,Urine 7.5 (5.0-8.5); Protein,Urine Negative (Negative); Urobilinogen,Urine 0.2 EU/dl (0.2)
[2023-05-20 20:09] LABS: Erythrocyte Sedimentation Rate 16 mm/hr (0-20)
[2023-05-20 20:31] LABS: Squamous Epithelial Cell,Urine Occasional #/hpf (0-5); WBC,Urine Occasional #/hpf (0-3)
[2023-05-20 20:32] LABS: HCG Qualitative, Serum Negative (Negative)
--- NOTE | 2023-05-20 20:35 | PC.NURSE ---
to ct via wc
[2023-05-20] MEDS: METHOCARBAMOL 500MG TABLET 500 MG PO (21:25)
== END 2023-05-20 22:15 | disposition home or self-care (01) ==
PROVIDERS: Physician Assistant; Emergency Provider Emergency Medicine; PCP Nurse Practitioner Family
DX: M54.50 Low back pain, unspecified (principal); R20.2 Paresthesia of skin; K21.9 Gastro-esophageal reflux disease without esophagitis; F17.290 Nicotine dependence, other tobacco product, uncomplicated
CPT/HCPCS: 72131; 80053; 81001; 84703; 85651; 96372; 96374; 99285

== ENCOUNTER 2024-01-27 18:01 | Emergency (ER) | payer OTHER, SELFPAY ==
[2024-01-27 18:03] VITALS: BP 125/84; PULSE 82; RESP 18; TEMP 37.2; O2SAT 99; BMI 35.0
--- NOTE | 2024-01-27 18:06 | ED_ITS ---
<Statement entered by Mushtaq aCmara MD - 01/27/24 19:40> I was consulted by the PABLO, and we discussed the complexity of the problems being addressed. I approved the treatment and management plan for this patient's care in the emergency department, thus performing a substantive portion of the medical decision making. Mushtaq Camara MD Discharge Plan Disposition Patient Disposition: Home, Self-Care Condition: Good Prescriptions Prescriptions: New svuqeeytulwzgqi-jnxyjshsb-AO [Bromfed DM] 2-30-10 mg/5 mL syrup 5 ml PO Q4H PRN (Reason: sinus symptoms) Qty: 118 0RF No Action omeprazole 20 mg capsule,delayed release(DR/EC) 20 mg PO DAILY Patient Comments: TAKE 1 CAPSULE 1 TIME EACH DAY methylprednisolone [Medrol (Herminio)] 4 mg tablets,dose pack See Rx Instructions .Route .COMPLEX 6 Days Qty: 21 0RF Rx Instructions: taper pack; naproxen 500 mg tablet 500 mg PO BID PRN (Reason: pain) Qty: 30 0RF promethazine 25 mg tablet 25 mg PO TID PRN (Reason: nausea and vomiting) Qty: 20 0RF cyclobenzaprine 10 mg Tablet 10 mg PO BID PRN (Reason: Muscle Spasm) Qty: 20 0RF methylprednisolone 4 mg Tablets,Dose Pack 4 mg PO DIRECTED Qty: 21 0RF methocarbamol 750 mg tablet 750 mg PO Q8H PRN (Reason: muscle spasm) Qty: 10 0RF prednisone 50 mg tablet 50 mg PO DAILY 5 Days Qty: 5 0RF loratadine 10 MG tablet 10 mg PO DAILY Patient Comments: TAKE 1 TABLET ONCE A DAY AT BEDTIME Referrals Follow up/Referrals: Theresa Joel APRN [Primary Care Provider] - See instructions Activity Restrictions/Add. Instructions Additional Instructions/Restrictions: As we discussed take Tylenol Motrin for constitutional symptoms. I have sent Bromfed into your pharmacy. Follow-up with your PCP for no improvement or return to the ER as needed for any worsening signs or symptoms. Clinical Impressions Clinical Impression: Upper respiratory infection, viral Print Language Print Language: Bengali Discharge ED Provider: Mushtaq Camara General Adult HPI General Chief complaint: Upper Respiratory Infection Stated complaint: B/A/ Diarrhea, headache, nausea, exp to covid Time Seen by Provider: 11/28/24 18:05 History of Present Illness HPI narrative: Patient presents for evaluation of symptoms of her upper respiratory tract infection. 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 Patient is not vaccinated against COVID or flu. She thus far has tested negative up until today when she became symptomatic with cough congestion headache etc. She has Tylenol and Motrin for her constitutional symptoms and it has helped. Patient is curious if she has the flu or not so she came to the ER for evaluation she denies any nausea vomiting shortness of breath chest pain diarrhea. Related Data Home Medications ?Medication ?Instructions ?Recorded ?Confirmed loratadine 10 mg tablet 10 mg PO DAILY Allergy symptoms 12/22/17 10/30/21 omeprazole 20 mg capsule,delayed 20 mg PO DAILY Reflux/Acid reflux 11/28/19 10/30/21 release Previous Rx's ?Medication ?Instructions ?Recorded methylprednisolone 4 mg tablets in See Rx Instructions .Route 03/20/22 a dose pack (Medrol (Herminio)) .COMPLEX 6 days #21 tabs naproxen 500 mg tablet 500 mg PO BID PRN pain #30 tabs 09/02/22 promethazine 25 mg tablet 25 mg PO TID PRN nausea and 09/02/22 vomiting #20 tabs cyclobenzaprine 10 mg tablet 10 mg PO BID PRN Muscle Spasm #20 12/11/22 tabs methylprednisolone 4 mg tablets in 4 mg PO DIRECTED #21 tabs 12/11/22 a dose pack methocarbamol 750 mg tablet 750 mg PO Q8H PRN muscle spasm #10 05/20/23 tabs prednisone 50 mg tablet 50 mg PO DAILY 5 days #5 tabs 05/20/23 hezavjqixlauzvs-srqqfkdcwtnkumv-BS 5 ml PO Q4H PRN sinus symptoms 01/27/24 2 mg-30 mg-10 mg/5 mL oral syrup #118 mL (Bromfed DM) Allergies Allergy/AdvReac Type Severity Reaction Status Date / Time No Known Allergies Allergy Verified 12/11/22 18:44 [facility] Disclaimer: The information contained in this section may have been updated after the patient was seen, as this information can be updated by other users. Medical History (Updated 01/27/24 @ 18:16 by YELENA Cronin) Migraine Left elbow fracture Sinus problem GERD (gastroesophageal reflux disease) Surgical History History of loop electrical excision procedure (LEEP) History of colposcopy History of cholecystectomy History of tonsillectomy History of section Family History Other Cancer Heart attack Hyperlipidemia Hypertension Social History Smoking Status: Current every day smoker tobacco type: smokeless tobacco alcohol intake: never substance use type: denies use current occupational status: employed Other Medical History Have you received the Flu Vaccine for this season: No Have you received the Pneumonia Vaccine: No ROS Obtained: Yes Systems reviewed as appropriate & no additional complaints except as documented Physical Exam General General appearance: alert and in no apparent distress Respiratory Respiratory exam: Present normal lung sounds bilaterally Cardiovascular Cardiovascular exam: Present regular rate Neurological Exam Neurological exam: Present alert and oriented X3 Medical Decision Making Medical Records Medical records reviewed: Yes I reviewed the patient's medical records. Screening: Per USPSTF and CDC recommendations, given the prevalence of disease in our region, it is our hospital?s policy to screen for HIV and viral Hepatitis for all patients aged 18 and over and those with ongoing risk factors. [place] Inquiry Pt receiving controlled substance: No Vital Signs: 01/27/24 18:03 01/27/24 18:30 Temperature 98.9 F 98.9 F Temperature Source Oral Pulse Rate 74 Pulse Rate [Right] 82 Respiratory Rate 18 16 Blood Pressure 125/94 H Blood Pressure [Right Arm] 125/84 Blood Pressure Mean [Right Arm] 97 02 Sat by Pulse Oximetry 99 Oxygen Delivery Method Room Air Room Air Lab Data Lab results reviewed: Yes I reviewed the patient's lab results. Lab Results 01/27/24 18:05: SARS-CoV-2 (PCR) Not detected, Influenza A Untype (PCR) Not detected, Influenza Type B (PCR) Not detected Orders (Tests/Meds): ORDERS Category Date Time Status Rapid PCR Covid and Flu A/B Stat Lab 01/27/24 18:05 Completed Medical Decision Narrative: In summary patient is a 23-year-old female who presents to the emergency department for evaluation of upper respiratory tract infection. Patient is hemodynamically stable upon arrival, afebrile. Physical exam is remarkable for nasal congestion and postnasal drip but no abnormal breath sounds no exudate no cervical lymphadenopathy satting at 99% on room air and in normal sinus rhythm at the bedside monitor. Differential diagnosis includes COVID or flu or any of the other 21 different known viral infections versus small possibility of a bacterial infection etc. Initial workup will be conducted with with COVID and flu swabs at patient directed decision making and discharge. I had interactive discussion about management and she would like to only get tested for COVID and flu and is comfortable continuing to treat at home with Tylenol and Motrin. I will offer her Bromfed sent to her pharmacy and she was agreeable. Thus patient is appropriate for discharge with follow-up with her PCP for no improvement or worsening signs or symptoms Critical Care Critical Care Time Critical Care Time: No
[2024-01-27 18:18] LABS: Coronavirus 19, PCR Not Detected (NotDetected); Influenza A, PCR Not Detected (NotDetected); Influenza B, PCR Not Detected (NotDetected)
[2024-01-27 18:30] VITALS: BP 125/94; PULSE 74; RESP 16; TEMP 37.2; O2SAT 98
== END 2024-01-27 18:30 | disposition home or self-care (01) ==
PROVIDERS: Physician Assistant; Emergency Provider Emergency Medicine; PCP Nurse Practitioner Family
DX: J06.9 Acute upper respiratory infection, unspecified (principal); R05.9 Cough, unspecified; R09.81 Nasal congestion; R51.9 Headache, unspecified; R19.7 Diarrhea, unspecified; M79.10 Myalgia, unspecified site
CPT/HCPCS: 87636; 99283

== ENCOUNTER 2024-08-07 15:15 | Emergency (ER) | payer SELFPAY ==
[2024-08-07 15:24] VITALS: BP 157/107; PULSE 67; RESP 20; TEMP 36.9; O2SAT 100; BMI 33.4
--- OUTSIDE RECORDS SUMMARY | 2024-08-07 15:25 | XMS_ITS | Clinical Summary ---
Author Organization Healthcare Address [address] [place] [address] Care Team Providers Care Hamper Maker Machine Name Role Phone Delilah Cooper DO Primary Care Provider [phone] Family History Medical History Relation Name Comments Arthritis Father Diabetes Father Hypertension Father Neuropathy Father Arthritis Mother Conversions - Other Mother ovarian cyst Relation Name Status Comments Father Mother Social History Tobacco Use Types Packs/Day Years Used Date Smoking Tobacco: Never Comments Unknown Sex and Gender Information Value Date Recorded Sex Assigned at Not on file Legal Sex Female 7:43 PM EDT Gender Identity Not on file Sexual Orientation Not on file Last Filed Vital Signs Vital Sign Reading Time Taken Comments Blood Pressure - - Pulse - - Temperature - - Respiratory Rate - - Oxygen Saturation - - Inhaled Oxygen Concentration - - Weight 114 kg (251 lb 4.8 oz) 06/11/2015 12:58 P M EDT Height 166.5 cm (5' 5.55 ) 06/11/2015 12:58 PM E DT Body Mass Index 41.12 06/11/2015 12:58 PM EDT Plan of Treatment Not on file Care Teams Hamper Maker Machine Relationship Specialty Start Date End Date Delilah Cooper DO [address] [facility] [address] [place] [address] PCP - General 07/12/20
--- NOTE | 2024-08-07 15:26 | ED_ITS ---
Discharge Plan Disposition Patient Disposition: Home, Self-Care Prescriptions Prescriptions: New methocarbamol 750 mg tablet 1,500 mg PO TID Qty: 90 0RF lidocaine 5 % adhesive patch,medicated 1 patch topical DAILY Qty: 15 0RF Rx Instructions: leave on most painful area for up to 12 hrs No Action omeprazole 20 mg capsule,delayed release(DR/EC) 20 mg PO DAILY Patient Comments: TAKE 1 CAPSULE 1 TIME EACH DAY methylprednisolone [Medrol (Herminio)] 4 mg tablets,dose pack See Rx Instructions .Route .COMPLEX 6 Days Qty: 21 0RF Rx Instructions: taper pack; naproxen 500 mg tablet 500 mg PO BID PRN (Reason: pain) Qty: 30 0RF promethazine 25 mg tablet 25 mg PO TID PRN (Reason: nausea and vomiting) Qty: 20 0RF cyclobenzaprine 10 mg Tablet 10 mg PO BID PRN (Reason: Muscle Spasm) Qty: 20 0RF methylprednisolone 4 mg Tablets,Dose Pack 4 mg PO DIRECTED Qty: 21 0RF methocarbamol 750 mg tablet 750 mg PO Q8H PRN (Reason: muscle spasm) Qty: 10 0RF prednisone 50 mg tablet 50 mg PO DAILY 5 Days Qty: 5 0RF uaimiqgfvredrsu-uizsjfsel-MY [Bromfed DM] 2-30-10 mg/5 mL syrup 5 ml PO Q4H PRN (Reason: sinus symptoms) Qty: 118 0RF loratadine 10 MG tablet 10 mg PO DAILY Patient Comments: TAKE 1 TABLET ONCE A DAY AT BEDTIME Referrals Follow up/Referrals: Provider,Referral, MD [Primary Care Provider, Medical] - See instructions Activity Restrictions/Add. Instructions Additional Instructions/Restrictions: Take Tylenol 1000 mg every 6 hours (do not exceed more than 4 g in a 24-hour period) and ibuprofen 400 mg every 6 hours for pain. Use lidocaine patches as well. Take Robaxin as needed for muscle relaxation. Follow-up with primary care doctor. Please return to the ER with any new, concerning, worsening symptoms including but not limited to numbness and weakness of your lower legs, inability to walk, loss of bowel or bladder function. Clinical Impressions Clinical Impression: Low back pain Qualifiers: Chronicity: chronic Back pain laterality: midline Sciatica presence: without sciatica Qualified Code(s): M54.50 - Low back pain, unspecified Stand Alone Forms Stand Alone Forms: Work/School Release Instructions Patient Instructions: DI for Chronic Pain -- Adult Print Language Print Language: Italian Discharge ED Provider: Mason Carmichael General Adult HPI General Chief complaint: Recheck/Abnormal Lab/Rx Stated complaint: Lower Back Pain Time Seen by Provider: 08/07/24 15:18 Mode of Arrival: Ambulatory Source of Information: Patient Limitations: No Limitations History of Present Illness HPI narrative: This is a 23-year-old female with chronic low back pain presenting with acute on chronic low back pain. States that she was told by her work that she needed to get a doctor's note. States that there has been no change to the character of her low back pain. Denies any radicular symptoms. Denies any numbness or weakness to bilateral lower extremities. No fecal or urinary incontinence or retention. No IV drug use. No numbness in the groin. Has been ambulatory without difficulty. Related Data Home Medications ?Medication ?Instructions ?Recorded ?Confirmed loratadine 10 mg tablet 10 mg PO DAILY Allergy sympt oms 12/22/17 10/30/21 omeprazole 20 mg capsule,delayed 20 mg PO DAILY Reflux /Acid reflux 11/28/19 10/30/21 release Previous Rx's ?Medication ?Instructions ?Recorded methylprednisolone 4 mg tablets in See Rx Instructions .Route 03/20/22 a dose pack (Medrol (Herminio)) .COMPLEX 6 days #21 tabs naproxen 500 mg tablet 500 mg PO BID PRN pain #30 t abs 09/02/22 promethazine 25 mg tablet 25 mg PO TID PRN nausea and 09/02/22 vomiting #20 tabs cyclobenzaprine 10 mg tablet 10 mg PO BID PRN Muscle S pasm #20 12/11/22 tabs methylprednisolone 4 mg tablets in 4 mg PO DIRECTED #21 tabs 12/11/22 a dose pack methocarbamol 750 mg tablet 750 mg PO Q8H PRN muscle s pasm #10 05/20/23 tabs prednisone 50 mg tablet 50 mg PO DAILY 5 days #5 tab s 05/20/23 fjhkuyqgdxktqgd-hyijgvrpywefegk-JU 5 ml PO Q4H PRN sin us symptoms 01/27/24 2 mg-30 mg-10 mg/5 mL oral syrup #118 mL (Bromfed DM) lidocaine 5 % topical patch 1 patch topical DAILY #15 ea 08/07/24 methocarbamol 750 mg tablet 1,500 mg (2 x 750 mg) PO T ID #90 08/07/24 tabs Allergies Allergy/AdvReac Type Severity Reaction Status Date / Time No Known Allergies Allergy Verified 12/11/22 18:44 [facility] Disclaimer: The information contained in this section may have been updated after the patient was seen, as this information can be updated by other users. Medical History (Updated 08/07/24 @ 15:26 by Mason Carmichael MD) Migraine Left elbow fracture Sinus problem GERD (gastroesophageal reflux disease) Surgical History History of loop electrical excision procedure (LEEP) History of colposcopy History of cholecystectomy History of tonsillectomy History of section Family History Other Cancer Heart attack Hyperlipidemia Hypertension Social History Smoking Status: Current every day smoker tobacco type: smokeless tobacco alcohol intake: never substance use type: denies use current occupational status: employed Travel in the last 8 weeks?: None Have you lived/traveled outside [place] in past 30 days?: No Contact w/someone who lives/traveled outside [place] past 30 days?: No Exposure to someone with infectious disease in past 14 days?: No Do you have a fever (greater than 100.4 F or 38 C)?: No Have you tested positive for COVID-19?: No Exposed to someone with COVID-19 in past 14 days?: No Do you have a sore throat?: No Do you have a cough?: No Do you have any weakness?: No Do you have any diarrhea?: No Are you experiencing any unusual bleeding?: No Do you have any muscle aches/pain?: No Do you have any abdominal pain?: No Are you experiencing loss of taste or smell?: No Other Medical History Have you received the Flu Vaccine for this season: No Have you received the Pneumonia Vaccine: No ROS Obtained: Yes All systems reviewed & no additional complaints except as documented Physical Exam General General appearance: alert and in no apparent distress Head Head exam: atraumatic Eye Eye exam: Present normal appearance, PERRL and EOMI Neck Neck exam: Present normal inspection and full ROM Chest Chest inspection: Present symmetric chest wall rise Respiratory Respiratory exam: Present normal lung sounds bilaterally; Absent respiratory distress Cardiovascular Cardiovascular exam: Present regular rate and normal rhythm Abdominal Exam Abdominal exam: Present soft; Absent distention Extremities Exam Extremities exam: Present normal inspection Neurological Exam Neurological exam: Present alert, oriented X3, normal gait and reflexes normal; Absent motor sensory deficit Psychiatric Psychiatric exam: Present normal affect and normal mood Skin Skin exam: Present warm and dry Medical Decision Making Medical Records Medical records reviewed: Yes I reviewed the patient's medical records. Screening: Per USPSTF and CDC recommendations, given the prevalence of disease in our region, it is our hospital?s policy to screen for HIV and viral Hepatitis for all patients aged 18 and over and those with ongoing risk factors. MR Comment: Emergency department visits from 12/11/2022 and 05/20/2023 notable for evaluation for low back pain similar to current presentation [place] Inquiry Pt receiving controlled substance: No Vital Signs: 08/07/24 15:24 Temperature 98.5 F Temperature Source Oral Pulse Rate [Left Radial] 67 Respiratory Rate 20 Blood Pressure [Right Arm] 157/107 H Blood Pressure Mean [Right Arm] 123 02 Sat by Pulse Oximetry 100 Oxygen Delivery Method Room Air Medical Decision Narrative: This is a 23-year-old female with a history of chronic low back pain presenting with acute on chronic low back pain. On arrival, patient is ambulatory, vital stable, neurologically intact of bilateral lower extremities. Differential diagnosis includes but is not limited to cord compression syndrome, degenerative disc disease, musculoskeletal back pain. She has no red flag symptoms concerning for cord compression syndrome. Has been seen multiple times for similar pain in the past. States that she only came to get a doctor's note. Considered CT imaging however do not believe it would be diagnostically useful at this time. Previous CT showed L4-L5 disc bulge. Outpatient MRI would be of more utility for long-term management. Patient is to follow-up with primary care doctor. Sent prescriptions for Robaxin and lidocaine patches. Ultimately discharged in stable condition. Critical Care Critical Care Time Critical Care Time: No
[2024-08-07 15:37] VITALS: BP 150/90; PULSE 67; RESP 20; TEMP 36.8; O2SAT 98
== END 2024-08-07 15:40 | disposition home or self-care (01) ==
PROVIDERS: Emergency Provider Student in an Organized Health Care Education/Training Program
DX: M54.50 Low back pain, unspecified (principal)
CPT/HCPCS: 99283